=== PATIENT | female | born 1970 | race African-American/Black ===

== ENCOUNTER 2024-12-22 14:27 | Outpatient (REF) | payer OTHER, SELFPAY ==
--- OUTSIDE RECORDS SUMMARY | 2024-12-20 23:59 | XMS_ITS | Continuity of Care Document ---
Author Organization [facility] Address [address] [place] [address]- Care Team Providers Care Lead Carpenter Name Role Phone Panting Adrián Campos MD Primary Care Physic rony [place] [facility] [place] 11/20/24 - 12/20/24 [facility] [address] [place], [place] [address] Encounter Type: Triage Allergies, Adverse Reactions, Alerts Substance Criticality Severity Reaction Reaction Severity Status codeine hives Active penicillin hives Active Percocet hives Active Dilaudid Active Other Food Allergy tomatoes, red onions, pears, walnuts Active traMADol Active morphine hives Active Immunizations Given and Recorded Vaccine Date Status Refusal Reason influenza virus vaccine, inactivated 12/11/23 Pedro Pablo rded influenza virus vaccine, inactivated 02/12/22 Pedro Pablo rded influenza virus vaccine, inactivated 1 12/21/20 Gi freddy influenza virus vaccine, inactivated 2 11/18/19 Re corded influenza virus vaccine, inactivated 3 01/01/19 Gi freddy influenza virus vaccine, inactivated 12/02/17 Pedro Pablo rded influenza virus vaccine, inactivated 12/06/16 Pedro Pablo rded influenza virus vaccine, inactivated 12/07/15 Pedro Pablo rded influenza virus vaccine, inactivated 12/23/14 Pedro Pablo rded SARS-CoV-2 (COVID-19) mRNA BNT-162b2 vac 05/21/20 Recorded SARS-CoV-2 (COVID-19) mRNA BNT-162b2 vac 05/07/20 Recorded SARS-CoV-2 (COVID-19) mRNA BNT-162b2 vac 04/30/20 Recorded tetanus/diphtheria/pertussis, acel(Tdap) 4 12/29/17 Given 1Result Comment: pt. tolerated inj. without complications....CO 2Result Comment: given @ [facility] 3Result Comment: [facility]:[id number] 4Result Comment: [12/29/2017] [facility] [place]# [id number] pt. tolerated inj. without complications...CO Medications amLODIPine 5 mg oral tablet 1 tablet, By Mouth, Daily, # 90 tablet, 1 Refills, Maintenance, 09/09/24 11:49:00 AM EDT, [facility]/pharmacy #[id number], 158, cm, 03/10/24 14:20:00 EST, Height, 78, kg, 03/10/24 13:45:00 EST, Dry Weight Start Date: 09/09/24 Status: Ordered Medication Dispense Status: Completed Quantity: 90.0 Unit: tablet Total Allowed Fills: 2 Fills Dispensed: 0 calcium carbonate 500 mg (200 mg elemental calcium) oral tablet, chewable 500 mg, 1, tablet, Chew, 2 times a day, # 60 tablet, Refills 0, Maintenance, 04/28/20 9:18:00 AM EST, Partial fill upon patient request if the prescription is for a schedule II opioid drug. Start Date: 04/28/20 Status: Ordered Medication Dispense Status: Completed Quantity: 60.0 Unit: tablet Total Allowed Fills: 1 Fills Dispensed: 0 diclofenac 1% topical gel = 2 Gm, Topically, 4 times a day, PRN NEEDED FOR SHOULDER PAIN, # 100 Gm, 1 Refills, Maintenance, 02/27/24 7:12:00 AM EST, [id number], 16, APPLY 2 GM TOPICALLY 4 TIMES A DAY NEEDED FOR SHOULDER PAIN, 158, cm, 12/03/23 13:54:00 EDT, Height, 78.3, kg, 12/03/23 13:41:00 EDT, Dry Weight Start Date: 02/27/24 Status: Ordered Medication Dispense Status: Completed Quantity: 100.0 Unit: g Total Allowed Fills: 1 Fills Dispensed: 0 EPINEPHrine 0.3 mg injectable solution See Instructions, INJECT 0.3MG INTRAMUSCULAR ONCE,INSTR:MAY REPEAT IF NECESSARY, # 2 Unknown, 11 Refills, Maintenance, 09/13/24 9:31:00 AM EDT, [id number], 158, cm, 03/10/24 14:20:00 EST, Height,78, kg, 03/10/24 13:45:00 EST, Dry Weight Start Date: 09/13/24 Status: Ordered Medication Dispense Status: Completed Quantity: 2.0 Unit: Unknown Total Allowed Fills: 1 Fills Dispensed: 0 Floranex oral granule 1 pack/packet, By Mouth, Daily, add to cereal, food or milk, # 30 pack/packet, 1 Refills, Maintenance, 11/15/24 1:21:00 PM EDT, Granule, [facility]/pharmacy #[id number], Partial fill upon patient request if the prescription is for a schedule II opioid drug., 1 pack/packet By Mouth Daily,Instr:add to cereal, foodor milk, 160, cm, 11/15/24 12:57:00 EDT, Height, 80, kg, 11/15/24 12:57:00 EDT, Dry Weight Start Date: 11/15/24 Status: Ordered Medication Dispense Status: Completed Quantity: 30.0 Unit: pack/packet Total Allowed Fills: 2 Fills Dispensed: 0 gabapentin 300 mg oral capsule See Instructions, TAKE 1 CAPSULE BY MOUTH DAILY IN THE MORNING AND 2 CAPS DAILY IN THE EVENING, # 90 capsule, Refills 0, Maintenance, 09/15/24 3:04:00 PM EDT, Instructions Replace Required Details, Route to Pharmacy Electronically, [id number], 158, cm, 03/10/24 14:20:00 EST, Height, 78, kg, 03/10/24 13:45:00 EST, Dry Weight Start Date: 09/15/24 Status: Ordered Medication Dispense Status: Completed Quantity: 90.0 Unit: capsule Total Allowed Fills: 1 Fills Dispensed: 0 omeprazole 40 mg oral enteric coated capsule See Instructions, TAKE 1 CAPSULE BY MOUTH 2 TIMES A DAY BEFORE A MEAL, # 180 capsule, 1 Refills, Maintenance, 08/22/24 6:58:00 PM EDT, [id number], 158, cm, 03/10/24 14:20:00 EST, Height, 78, kg, 03/10/24 13:45:00 EST, Dry Weight Start Date: 08/22/24 Status: Ordered Medication Dispense Status: Completed Quantity: 180.0 Unit: capsule Total Allowed Fills: 1 Fills Dispensed: 0 spironolactone 25 mg oral tablet 1, tablet, By Mouth, Daily, # 90 tablet, Refills 0, Tot. Refills 0, Maintenance, 11/29/24 11:17:00 AM EDT, Route to Pharmacy Electronically, [facility]/pharmacy #[id number], 160, cm, 11/15/24 12:57:00 EDT, Height, 80, kg, 11/15/24 12:57:00 EDT, Dry Weight Start Date: 11/29/24 Stop Date: 02/27/25 Status: Ordered Medication Dispense Status: Completed Quantity: 90.0 Unit: tablet Total Allowed Fills: 1 Fills Dispensed: 0 VITAMIN D3 1,000 UNIT SOFTGEL VITAMIN D3 1,000 UNIT SOFTGEL, 1, capsule, By Mouth, Daily, # 90 capsule, 3 Refills, Maintenance, 03/20/23 12:49:00 PM EST, 158, cm, 02/05/23 14:17:00 EST, Height, 71.5, kg, 03/18/22 8:30:00 EST, Dry Weight Start Date: 03/20/23 Status: Ordered Medication Dispense Status: Completed Quantity: 90.0 Unit: capsule Total Allowed Fills: 1 Fills Dispensed: 0 Vitamin D3 1000 intl units oral capsule 1 capsule = 1,000 International_Units, By Mouth, Daily, # 100 capsule, 1 Refills, Maintenance, 10/09/24 11:20:00 AM EDT, Capsule, [facility]/pharmacy #[id number], Partial fill upon patient request if the prescription is for a schedule II opioid drug., 158, cm, 09/30/24 11:23:00 EDT, Height, 78, kg, 03/10/24 13:45:00 EST, Dry Weight Start Date: 10/09/24 Status: Ordered Medication Dispense Status: Completed Quantity: 100.0 Unit: capsule Total Allowed Fills: 2 Fills Dispensed: 0 Problem List Condition Confirmation Course Effective Dates Status H ealth Status Informant Anemia Confirmed Active Obesity (BMI 30-39.9) Confirmed Active Dysphagia Confirmed Active Erosive gastritis Confirmed Active Gastroenteritis Confirmed Active Goiter Confirmed Active Right hip pain Confirmed Active Hypertension Confirmed Active Hypertension Confirmed Active Multinodular goiter Confirmed Active Obese class I Confirmed Active Routine medical exam Confirmed Active Left shoulder pain Confirmed Active Social History Social History Type Response Smoking Status Never smoker entered on: 11/23/14 Sex Sex Representation Female (finding) Patient Care team information Care Team Personnel Name: Marcus Campos MD, Adrián Sanchez Position: [facility] Physician - Primary Care Member Role: PCP [address]: [address] [place] [address] Telecom: Care Team Related Persons Name: CHRISTI ALVARADO Name: MANA ALVARADO Name: VINNY ALVARADO Name: VINNY ALVARADO Name: CHRISTY RAY Insurance Providers Guarantor name: SIMIN ALVARADO Health Plan Information #: 1 Payer: [facility] POS Payer Identifier: [id number] Member Number: [id number] Group Number: [id number] Subscriber Identifier: NA Relationship to Subscriber: self Coverage Type: Commercial Managed Care - HMO Coverage Verification Date: NA Telecom: NA Address:
[2024-12-22 16:10] LABS: MANUAL DIFF FLAG NO
[2024-12-22 16:33] LABS: Hematocrit 41.8 % (37.0-47.0); Hemoglobin 13.6 g/dl (12.0-16.0); Imm Gran Abs Auto 0.01 X10*3/uL (0.00-0.03); Imm Gran Pct Auto 0.2 % (0.0-0.4); Lymphocytes Absolute Auto 1.5 X10*3/uL (1.2-4.9); Mean Corpuscular HGB Conc 32.5 g/dl (31.0-35.0); Mean Corpuscular Hemoglobin 29.1 pg (27.0-33.0); Mean Corpuscular Volume 89.3 fL (80.0-98.0); NRBC Abs Auto 0.000 X10*3/uL (0.0-0.012); NRBC Pct Auto 0.0 /100WBC (0.0-0.2); Platelet Count 269 X10*3/uL (160-400); Red Blood Count 4.68 X10*6/uL (4.20-5.50); White Blood Count 4.3 X10*3/uL (4.8-10.8)
[2024-12-22 17:07] LABS: Alanine Aminotransferase 20 U/L (0-31); Albumin Level 4.8 g/dL (3.5-5.0); Alkaline Phosphatase 92 U/L (39-117); Anion Gap 10 (12-20); Aspartate Amino Transferase 23 U/L (5-31); Blood Urea Nitrogen 23 mg/dL (9-16); Calcium 9.6 mg/dL (8.4-10.2); Carbon Dioxide 29 mmol/L (22-29); Chloride 104 mmol/L (96-108); Estimated Glomerular Filt Rate 40; Magnesium 2.3 mg/dL (1.6-2.6); Potassium 4.4 mmol/L (3.3-5.1); Sodium 139 mmol/L (135-145); Total Protein 8.1 g/dL (6.5-8.0)
--- OUTSIDE RECORDS SUMMARY | 2024-12-22 18:47 | XMS_ITS | Clinical Summary ---
Author Organization [facility] Address [address] [place] [phone] Phone Care Team Providers Care Maintenance Department Technician Name Role Phone Domenica Espinal MD Primary Care Provider [phone] Allergies Active Allergy Reactions Criticality Noted Date Comments Codeine Hives 10/12/2024 Hydromorphone Hives,Itching,Nausea 10/12/2024 Morphine Hives 10/12/2024 Onion Hives,Itching,Swelli ng High 10/12/2024 Patient allergic to red onion Other 10/28/2024 Other Reaction(s): tomatoes, red onions, pears, walnuts Oxycodone Hives 10/12/2024 Oxycodone-Acetaminophen Hives,Itching Pear Hives,Itching,Swelli ng High 10/12/2024 Penicillins Hives,Itching 10/12/2024 Tomato Hives,Itching,Swelli ng High 10/12/2024 Tramadol Hives,Itching 10/12/2024 [place] Hives,Itching,Swelli ng High 10/12/2024 Medications Tirzepatide-Weig ht Management (Zepbound) 2.5 MG/0.5ML solution Inject 2.5 mg under the skin 5 Active omeprazole (PriLOSEC) [address] capsule Take 40 mg by mouth in the morning. 5 Active gabapentin (NEURONTIN) 300 MG capsule Take 300 mg by mouth in the morning and 300 mg in the evening. 5 Active cholecalciferol (Vitamin D-[address]) 25 MCG (1000 UT) tablet Take 1,000 Units by mouth in the morning. Active amLODIPine (NORVASC) 5 MG tablet Take 5 mg by mouth in the morning. 5 Active spironolactone (ALDACTONE) 25 MG tablet Take 2 tablets (50 mg total) by mouth 1 (one) time each day 180 tablet 3 5 Active spironolactone (ALDACTONE) 25 MG tablet Take 25 mg by mouth in the morning. 5 12/10/19 25 Discontinu ed(Reorder (does not appear on AVS)) ondansetron ODT (ZOFRAN-ODT) 4 MG dispersible tablet TAKE 1 TABLET BY MOUTH EVERY 8 HOURS FOR NAUSEA AND VOMITING FOR 3 DAYS 5 12/10/19 25 Discontinu ed([facility] Active Problems Problem Noted Date Diagnosed Date Obese class I 10/28/2024 Multinodular goiter 10/28/2024 Hypertension 10/28/2024 Erosive gastritis 10/28/2024 Routine medical examination 10/28/2024 Pain in right hip 10/28/2024 Pain in left shoulder 10/28/2024 Acute kidney failure 10/12/2024 Gastroenteritis 09/30/2024 Thyroid nodule 11/13/2022 Goiter 11/13/2022 Gastric erosion 11/13/2022 Dysphagia 11/13/2022 Anemia 11/13/2022 Encounters Date Type Department Care Team Description 12/09/2024 4:30 PM EDT Office Visit [facility] [address] [phone] Trell Palacios MD Other acute kidney failure (HCC) (Primary Dx); Hypertension 10/28/2024 9:00 AM EDT Office Visit [facility] [address] [facility] [address] [place] [address] Trell Palacios MD Other acute kidney failure (HCC) (Primary Dx); Hypertension from Last 3 Months Family History Medical History Relation Comments Hypertension Brother Diabetes Father Kidney disease Father Cancer Mother Hypertension Mother Relation Status Comments Brother Alive Father Alive Mother Alive Social History Tobacco Use Types Packs/Day Years Used Date Smoking Tobacco: Never Smokeless Tobacco: Never Tobacco Cessation:Counseling Given: Not Answered Alcohol Use Standard Drinks/Week Comments Not Currently 0 (1 standard drink = 0.6 oz pure alcohol) Only on occasions maybe a glass of wine Comments Unknown Sex and Gender Information Value Date Recorded Sex Assigned at Not on file Legal Sex Female 8:13 AM EDT Gender Identity Not on file Sexual Orientation Not on file Last Filed Vital Signs Vital Sign Reading Time Taken Comments Blood Pressure 162/100 12/09/2024 4:18 PM EDT Pulse 93 12/09/2024 4:18 PM EDT Temperature - - Respiratory Rate - - Oxygen Saturation - - Inhaled Oxygen Concentration - - Weight 80.7 kg (178 lb) 12/09/2024 4:18 PM EDT Height 160 cm (5' 3 ) 10/28/2024 9:07 AM EDT Body Mass Index 31.53 10/28/2024 9:07 AM EDT Plan of Treatment Upcoming Encounters Date Type Department Care Team (Late st Contact Info) Description 04/18/2025 4:15 PM EST Office Visit [facility] [address] [phone] Trell Palacios MD [address] [phone] Health Maintenance Due Date Last Done Comments Breast Cancer Screening 1970 Hepatitis B Vaccine (1 of 3 - 19+ 3-dose series) 1989 Pneumococcal Vaccine: 50+ Ye ars (1 of 2 - PCV) 1989 Colorectal Cancer Screening: Annual FOBT 08/05/2019 Colorectal Cancer Screening: Colonoscopy 08/05/2019 Colorectal Cancer Screening: Sigmoidoscopy 08/05/2019 Influenza Vaccine (#1) 2024 12/21/2020, 2018 Procedures Procedure Name Priority Date/Time Associated Diagnosis Comments RENIN ACTIVITY Routine 10/29/2024 8:44 AM EDT Hypertension ALDOSTERONE Routine 10/29/2024 8:44 AM EDT Hypertension URINE ALBUMIN / CREATININE RATIO Routine 10/29/2024 8:44 AM EDT Other acute kidney failure (HCC) RENAL FUNCTION PANEL Routine 10/29/2024 8:44 AM EDT Other acute kidney failure (HCC) from Last 3 Months Results * Renin Activity, Plasma (10/29/2024 8:44 AM EDT) Renin Activity 0.665 0.167 - 5.380 ng/mL/hr [facility] Blood Venous blood / Unknown 10/29/2024 8:44 AM EDT 10/29/2024 Narrative [facility] - 11/03/2024 1:05 PM EDT Test(s) 561015-[id number] Activity, Plasma was developed and its performance characteristics determined by [employer]. It has not been cleared or approved by the Food and Drug Administration. Trell Palacios MD LAB BLOOD ORDERABLES Final Resul t [facility] [place] [address] * (ABNORMAL) urine albumin / creatinine ratio (10/29/2024 8:44 AM EDT) Creatinine, Ur 95.8 Not Estab. mg/dL [facility] Albumin, Urine 32.5 Not Estab. ug/mL [facility] Albumin/Creatin ine Ratio 34(H) 0 - 29 mg/g creat [facility] Comment: Normal: 0 - 29 Moderately increased: 30 - 300 Severely increased: >300 Urine Urine specimen obtained by clean catch procedure / Unknown 10/29/2024 8:44 AM EDT 10/29/2024 Trell Palacios MD LAB URINE ORDERABLES Final Resul t [facility] [address] [place] [address] * Aldosterone (10/29/2024 8:44 AM EDT) Pathologist [facility] Aldosterone 20.2 0.0 - 30.0 ng/dL [facility] Blood Venous blood / Unknown 10/29/2024 8:44 AM EDT 10/29/2024 Narrative [facility] - 11/03/2024 1:05 PM EDT Test(s) [id number] was developed and its performance characteristics determined by [employer]. It has not been cleared or approved by the Food and Drug Administration. Trell Palacios MD LAB BLOOD ORDERABLES Final Resul t Performing Organization Address City/[facility]/ZIP Co de Phone Number [facility] [address] [place] [phone] * (ABNORMAL) Renal funtion panel (10/29/2024 8:44 AM EDT) Pathologist [facility] Glucose 96 70 - 99 mg/dL [facility] BUN 14 6 - 24 mg/dL [facility] Creatinine 1.36(H) 0.57 - 1.00 mg/dL [facility] eGFR CKD-EPI CR 2020 46(L) >59 mL/min/1.7 3 [facility] BUN/Creatinine Ratio 10 9 - 23 [facility] Sodium 137 134 - 144 mmol/L [facility] Potassium 3.9 3.5 - 5.2 mmol/L [facility] Chloride 101 96 - 106 mmol/L [facility] Bicarbonate (CO2) 20 20 - 29 mmol/L [facility] Calcium 9.2 8.7 - 10.2 mg/dL [facility] Albumin 4.3 3.8 - 4.9 g/dL [facility] Phosphorus 3.8 3.0 - 4.3 mg/dL [facility] Blood Venous blood / Unknown 10/29/2024 8:44 AM EDT 10/29/2024 us Trell Palacios MD LAB BLOOD ORDERABLES Final Resul t [facility] [address] [place] [address] from Last 3 Months Insurance [facility] Care Teams Maintenance Department Technician Relationship Specialty Start Date End Date Domenica Espinal MD [address] [place], [place] PCP - General Internal Medicine 10/19/24
== END 2024-12-22 14:28 | disposition home or self-care (01) ==
LOC: HO.LAB 14:27
PROVIDERS: PCP Internal Medicine; Visit Provider Internal Medicine
DX: I10 Essential (primary) hypertension (principal); R73.03 Prediabetes; N17.9 Acute kidney failure, unspecified; R06.02 Shortness of breath
CPT/HCPCS: 36415; 80053; 83036; 83735; 84443; 85025

== ENCOUNTER 2024-12-22 14:27 | Outpatient (AMB) | payer OTHER, SELFPAY ==
--- NOTE | 2024-12-22 14:22 | MHC.PC.OV ---
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: No Accompanied by: Self / Same As Patient Allergies acetaminophen (From Percocet) Allergy (Mild, Verified 12/22/24 14:34) Hives codeine Allergy (Mild, Verified 12/22/24 14:34) Hives morphine Allergy (Mild, Verified 12/22/24 14:34) Hives oxycodone (From Percocet) Allergy (Mild, Verified 12/22/24 14:34) Hives Penicillins Allergy (Mild, Verified 12/22/24 14:34) Hives tramadol Allergy (Mild, Verified 12/22/24 14:34) Hives Medication List - Last Reconciled 12/22/24 by Domenica Espinal MD amlodipine 5 mg PO DAILY cholecalciferol (vitamin D3) (Vitamin D3) 25 mcg PO DAILY diclofenac sodium 1% 2 grams topical QID PRN epinephrine IM fluticasone propionate 50 mcg/actuation 2 sprays intranasal DAILY gabapentin mg PO Lactobacillus acidoph-L.bulgar 100 million cell (Floranex) 1 packet PO DAILY omeprazole 40 mg PO BID spironolactone 50 mg PO DAILY Tobacco use date assessed: 12/22/24 Dental Screening Dental Screen Date: 12/22/24 Did you have a dental visit in the last 12 months?: Yes Did you have a dental problem in the last 6 months where you did not have access to dental care?: No Was dental information given to patient?: Patient has dentist HPI HPI Comments History of Present Illness Details The patient is a 54 year old female presenting [facility]. Acute kidney failure: After returning from a trip, she had symptoms of malaise and was found to have a creatinine level of 10. Urgent care and hospital visits led to a diagnosis of acute kidney failure associated with significant electrolyte disturbances, requiring a five-day hospitalization. Has seen behavioral health tech Dr. Palacios. Creatinine has trended down. Patient also notes increased sob with exertion, no chest pain. Hypertension: Persistent hypertension continued despite current treatment with spironolactone and amlodipine, with inadequately controlled levels around 130-140 mmHg systolic. Salmonella: Confirmed salmonella infection linked to undercooked meat ingestion contributed to gastrointestinal and kidney function disturbances that led to dehydration and hospitalization. Electrolyte Imbalances: Low potassium, magnesium, and zinc levels were significant, contributing to muscle twitching and fatigue, linked to both dietary intake and health status. 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 - Nutrition: Eats a low-salt diet, consumes a lot of water and cranberry juice. - Exercise: Experiences fatigue on exertion, particularly on stairs, potentially limiting physical activity. Review of Systems - Cardiovascular: Denies chest pain; per hpi - Pulm: per hpi - Gastrointestinal: per hpi - Genitourinary: Denies current issues, urine is clear. - Neurologic: Reports fatigue, states previous left eye twitching. - Musculoskeletal: Denies leg swelling. - General: Reports feeling tired frequently, particularly post-recovery. Physical Exam - Pulmonary- Lungs clear to auscultation. -Cardiovascular- Normal heart sounds, soft murmur across precordium - Abdominal- SNTND, normoactive bowel sounds. - Extremities- No edema noted. Assessment and Plan 1. Acute kidney failure - Monitor kidney function due to recent failure. 2. Hypertension - continue spironolactone, amlodipine, and add carvedilol. Monitor blood pressure. 3. SOB with exertion- obtain echocardiogram, also has murmur Follow up in 2 weeks to assess blood pressure. Plan - Adjust hypertensive medications and monitor levels. - Evaluate renal and electrolyte status closely. - Encourage dietary modifications and hydration strategy. - Follow up with nephrology - obtain echocardiogram Discussion Notes During the visit, we thoroughly reviewed the patient's recent acute kidney failure incident, its background, and its associated complications like electrolyte disturbances and hypertension. We discussed adjusting her hypertensive regimen. Additionally, we talked about her recent physical symptoms, particularly fatigue on exertion, which warrants a cardiology evaluation. Patient Instructions - Continue taking medications as directed for hypertension. - Monitor blood pressure twice daily, record readings. - Maintain a low-salt diet and drink plenty of water. - Follow up with nephrology - Call the office if you experience new symptoms or significant changes in health. - Rest and pace physical activity to manage fatigue. 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 How often do you have a drink containing alcohol?: Monthly or less 2. How many drinks containing alcohol do you have on a typical day when you are drinking?: 1 or 2 3. How often do you have six or more drinks on one occasion?: Never Total Score: 1 Physical exam (Primary Care) Vital Signs: Last Vital Signs Temp 97.7 F 12/22/24 14:32 Pulse 86 12/22/24 14:32 Resp 16 12/22/24 14:32 BP 158/98 H 12/22/24 15:39 Pulse Ox 98 12/22/24 14:32 Oxygen Delivery Method Room Air 12/22/24 14:32 BMI result Body Mass Index 31.5 Tobacco/Smoking Status: Tobacco use Status Tobacco use date assessed 12/22/24 12/22/24 14:24 Patient Tobacco Use Status Never used Tobacco 12/22/24 14:39 e-Cigarette/Vaping Use Never Used 12/22/24 14:39 Coding Level of Care Code Est Pt Level 4 (82818) Complex EM visit Add On G2211 Diagnoses Acute kidney injury N17.9 Shortness of breath on exertion R06.02 Primary hypertension I10 Prediabetes R73.03 Assessment & Plan Assessment & Plan (1) Acute kidney injury: Code(s): N17.9 - Acute kidney failure, unspecified Category: Medical (2) Shortness of breath on exertion: Code(s): R06.02 - Shortness of breath Category: Medical (3) Primary hypertension: Code(s): I10 - Essential (primary) hypertension Category: Medical (4) Prediabetes: Code(s): R73.03 - Prediabetes Category: Medical Plan: repeat a1c Plan - Adjust hypertensive medications and monitor levels. - Evaluate renal and electrolyte status closely. - Encourage dietary modifications and hydration strategy. - Follow up with nephrology Orders: Orders Complete Blood Count Auto Diff Today I10 - Essential (primary) hypertension, N17.9 - Acute kidney failure, unspecified, R73.03 - Prediabetes Comprehensive Met. Panel Today I10 - Essential (primary) hypertension, N17.9 - Acute kidney failure, unspecified, R73.03 - Prediabetes CA echo transthoracic complete Today R06.02 - Shortness of breath Magnesium Today I10 - Essential (primary) hypertension TSH reflex Free T4 Today I10 - Essential (primary) hypertension, N17.9 - Acute kidney failure, unspecified, R73.03 - Prediabetes Hemoglobin A1c Today I10 - Essential (primary) hypertension, R73.03 - Prediabetes Referrals MANAGER OF PMO Referral Z01.419 - Encounter for gynecological examination (general) (routine) without abnormal findings Medications: New diclofenac sodium 1% 2 grams topical QID PRN 100 grams 3RF pain carvedilol must administer with a meal/food 6.25 mg PO BID 60 tabs 0RF 30 days
[2024-12-22 14:32] VITALS: BP 160/94; PULSE 86; RESP 16; TEMP 36.5; O2SAT 98; BMI 31.5
[2024-12-22 15:39] VITALS: BP 158/98
--- OUTSIDE RECORDS SUMMARY | 2024-12-22 17:37 | XMS_ITS | Clinical Summary ---
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 Name Role Phone Physician, Pcp Unknown Primary Care Provider Vikki vailable Allergies Active Allergy Reactions Criticality Noted Date Comments Codeine Hives 10/12/2024 Hydromorphone Hives 10/12/2024 Morphine Hives 10/12/2024 Onion Hives,Itching,Angioedema High 10/12/2024 Patient allergic to red onion Oxycodone Hives 10/12/2024 Pear Hives,Itching,Angioedema High 10/12/2024 Penicillins Hives 10/12/2024 Tomato Hives,Itching,Angioedema High 10/12/2024 Tramadol Hives 10/12/2024 [place] Hives,Itching,Angioedema High 10/12/2024 Medications amLODIPine (NORVASC) 5 mg tablet Take 1 tablet (5 mg total) by mouth 1 (one) time each day. 09/09/2024 Active gabapentin (NEURONTIN) 300 mg capsule Take 1 capsule (300 mg total) by mouth 2 (two) times a day. 09/15/2024 Active omeprazole (PriLOSEC) [address] capsule Take 1 capsule (40 mg total) by mouth 1 (one) time each day. 08/22/2024 Active spironolactone (ALDACTONE) 25 mg tablet Take 1 tablet (25 mg total) by mouth 1 (one) time each day. 09/14/2024 Active cholecalciferol (VITAMIN D-3) 25 mcg (1,000 unit) tablet Take 1 tablet (1,000 Units total) by mouth 1 (one) time each day. Active Active Problems Problem Noted Date Diagnosed Date Acute renal failure, unspeci fied acute renal failure type ([facility]) 10/12/2024 Encounters Date Type Department Care Team Description 10/12/2024 4:53 AM EDT - 10/16/2024 11:18 AM EDT Hospital Encounter [facility] [address] [place] [address] Lory Lopez MD Bukalo, Nermina, MD Mohani, Priya, MD Acute renal failure, unspecified acute renal failure type ([facility]) (Primary Dx); Hypokalemia due to excessive gastrointestinal loss of potassium; Oliguria; E. coli gastroenteritis; Enteritis, enterotoxigenic E. coli; Enteritis, enteropathogenic E. coli Discharge Disposition: Home or Self Care from Last 3 Months Social History Tobacco Use Types Packs/Day Years Used Date Smoking Tobacco: Never Smokeless Tobacco: Never Tobacco Cessation:Counseling Given: Not Answered Alcohol Use Standard Drinks/Week Comments Yes 0 (1 standard drink = 0.6 oz pur e alcohol) occasionally Housing Instability Answer Date Recorde d Are you worried that in the next 2 months you may not have stable housing? No 10/12/2024 Food Access & Nutrition Answer Date Rec orded Do you have access to a vari ety of food including fruits and vegetables? Yes 10/12/2024 Access to Healthcare Answer Date Record ed Within the last 3 months, ho w many times did you visit the emergency department for your medical care? 0 10/12/2024 Health Literacy Answer Date Recorded How often do you need to hav e someone help you when you read instructions, pamphlets, or other written material from your doctor or pharmacy? Never 10/12/2024 Caregiver: How often do you need to have someone help you when you read instructions, pamphlets, or other written material from your doctor or pharmacy? Not on file 10/12/2024 Financial Risk Answer Date Recorded How hard is it for you to pa y for the very basics like food, housing, medical care, and air conditioning / heating? Not very hard 10/12/2024 Transportation Answer Date Recorded Has the lack of transportati on kept you from meetings, work, or from getting things needed for daily living? No Has the lack of transportati on kept you from medical appointments or from getting medications? No 10/12/2024 Social Isolation Answer Date Recorded How often do you feel lonely or isolated from th ose around you? Never 10/12/2024 Food Risk Answer Date Recorded Within the past 12 months we worried whether our food would run out before we got money to buy more. Never true 10/12/2024 Within the past 12 months th e food we bought just didn't last and we didn't have money to get more. Never true 10/12/2024 Dependent Care Answer Date Recorded Do you need help finding or paying for care for your loved ones. For example, child protection specialist or elderly care for an older adult? No 10/12/2024 Education Answer Date Recorded Do you think completing more education or training, like finishing a GED, going to college, or learning a trade, would be helpful for you? No 10/12/2024 Employment and Income Answer Date Recor ded During the last four weeks, have you been actively looking for work? No 10/12/2024 Living Situation Answer Date Recorded What is your living situation? Unrecognized valu e 10/12/2024 Interpersonal Safety Answer Date Record ed Physical Abuse Unrecognized value 10/12/2024 Verbal Abuse Unrecognized value 10/12/2024 Comments No Sex and Gender Information Value Date Recorded Sex Assigned at Not on file Legal Sex Female 3:27 AM EDT Gender Identity Not on file Sexual Orientation Choose not to disclose 2024 2:32 PM EDT Obstetrics History Last Filed Vital Signs Vital Sign Reading Time Taken Comments Blood Pressure 144/91 10/16/2024 7:53 AM EDT Pulse 82 10/16/2024 7:53 AM EDT Temperature 36.8 C (98.2 F) 10/16/2024 7:53 AM EDT Respiratory Rate 17 10/16/2024 7:53 AM EDT Oxygen Saturation 99% 10/16/2024 7:53 AM EDT Inhaled Oxygen Concentration - - Weight 75.3 kg (166 lb) 10/12/2024 5:20 AM EDT Height 160 cm (5' 3 ) 10/12/2024 5:20 AM EDT Body Mass Index 29.41 10/12/2024 5:20 AM EDT Plan of Treatment Health Maintenance Due Date Last Done Comments Breast Cancer Screening 1970 Colorectal Cancer Screening: Colonoscopy 1970 Hepatitis B Vaccines (1 of 3 - 19+ 3-dose series) 1989 Cervical Cancer Screening: Pap Smear 08/05/1991 Pneumococcal Vaccine: 50+ Years (1 of 1 - PCV) 2020 Zoster Vaccines (1 of 2) 2020 Depression Screening 02/18/2024 Cholesterol Screening (Lipid Panel) 10/12/2024 HIV Screening 10/12/2024 Hepatitis C Screening 10/12/2024 COVID-19 Vaccine ( - 2024- season) 2024 05/21/2020, 04/30/2020 Influenza Vaccine (#1) 2024 , 02/12/2022, 12/21/2020, Additional history exists Social Influencers of Health Screening 10/12/2025 10/12/2024 Hypertension/CHF/CAD Annual BMP Blood Test 10/16/2025 10/16/2024, 10/15/2024, 10/14/2024, Additional history exists DTaP,Tdap,and Td Vaccines (2 - Td or Tdap) 12/30/2027 12/29/2017 RSV Immunization Adult Patients (1 - 1-dose 75+ series) 2045 HIB Vaccines Aged Out No longer eligi ble based on patient's age to complete this topic HPV Vaccines Aged Out No longer eligi ble based on patient's age to complete this topic Hepatitis A Vaccines Aged Out No long er eligible based on patient's age to complete this topic IPV Vaccines Aged Out No longer eligi ble based on patient's age to complete this topic MMR Vaccines Aged Out No longer eligi ble based on patient's age to complete this topic Meningococcal ACWY Vaccine Aged Out N o longer eligible based on patient's age to complete this topic Meningococcal B Vaccine Aged Out No l onger eligible based on patient's age to complete this topic RSV Immunization Patients Under 20 months Aged Out No longer eligible based on patient's age to complete this topic Varicella Vaccines Aged Out No longer eligible based on patient's age to complete this topic Procedures Procedure Name Priority Date/Time Associated Diagnosis Comments MAGNESIUM Routine 10/16/2024 6:00 AM EDT BASIC METABOLIC PANEL Routine 10/16/2024 6:00 AM EDT LAVENDER - EDTA Routine 10/16/2024 5:56 AM EDT EXTRA TUBES Routine 10/16/2024 5:56 AM EDT LAVENDER - EDTA Routine 10/15/2024 5:54 AM EDT EXTRA TUBES Routine 10/15/2024 5:54 AM EDT MAGNESIUM Routine 10/15/2024 5:54 AM EDT BASIC METABOLIC PANEL Routine 10/15/2024 5:54 AM EDT RBC MORPHOLOGY REVIEW Routine 10/14/2024 5:44 AM EDT CBC WITH AUTO DIFFERENTIAL Routine 10/14/2024 5:44 AM EDT MAGNESIUM Routine 10/14/2024 5:44 AM EDT CBC AND DIFFERENTIAL Routine 10/14/2024 5:44 AM EDT BASIC METABOLIC PANEL Routine 10/14/2024 5:44 AM EDT BASIC METABOLIC PANEL Routine 10/13/2024 3:16 PM EDT ANTI-JENNIFER 1 ANTIBODY, IGG Routine 10/14/19 8:53 AM EDT LAVENDER - EDTA Routine 10/13/2024 8:49 AM EDT EXTRA TUBES Routine 10/13/2024 8:49 AM EDT TISSUE TRANSGLUTAMINASE, IGA Add-On 10/13/2024 5:45 AM EDT IMMUNOGLOBULIN IGM Add-On 10/13/2024 5: 45 AM EDT COMPLETE BLOOD COUNT Routine 10/13/2024 5:45 AM EDT BASIC METABOLIC PANEL Routine 10/13/2024 5:45 AM EDT US RETROPERITONEAL COMPLETE Routine 10/12/2024 11:43 PM EDT C4 COMPLEMENT Add-On 10/12/2024 12:33 PM EDT C3 COMPLEMENT Add-On 10/12/2024 12:33 PM EDT ANTI-NEUTROPHILIC CYTOPLASMIC ANTIBODY Add-On 10/12/2024 12:33 PM EDT ZANE IFA WITH TITER AND PATTERN Add-On 10/12/2024 12:33 PM EDT HAPTOGLOBIN Add-On 10/12/2024 12:33 PM EDT BASIC METABOLIC PANEL Routine 10/12/2024 12:33 PM EDT CULTURE STOOL Routine 10/12/2024 10:34 AM EDT GASTROINTESTINAL PATHOGENS BY PCR Routine 10/12/2024 10:34 AM EDT XR CHEST 1 VIEW STAT 10/12/2024 9:06 AM EDT EAST URINE CULTURE TUBE STAT 10/13/19 8:14 AM EDT URINALYSIS WITH REFLEX MICROSCOPIC AND CULTURE STAT 10/12/2024 8:14 AM EDT URINALYSIS WITH REFLEX MICROSCOPIC AND CULTURE STAT 10/12/2024 8:14 AM EDT CULTURE URINE STAT 10/12/2024 8:14 AM EDT CBC WITH AUTO DIFFERENTIAL STAT 10/12/2024 6:20 AM EDT MAGNESIUM STAT 10/12/2024 6:20 AM EDT COMPREHENSIVE METABOLIC PANEL STAT 10/12/2024 6:20 AM EDT CBC AND DIFFERENTIAL STAT 10/12/2024 6:20 AM EDT ND CRITICAL CARE 30-74 MINUTES Routine 10/12/2024 4:46 AM EDT from Last 3 Months Results * (ABNORMAL) Magnesium (10/16/2024 6:00 AM EDT) Only the most recent of4 resultswithin the time period is included. Pathologist [facility] Magnesium 1.7(L) 1.9 - 2.6 mg/dL LAB CHEMISTRY METHOD 10/16/2024 7:07 AM EDT [facility] Blood Venous blood specimen / Unknown Venipuncture / Unknown 10/16/2024 6:00 AM EDT 10/16/2024 6:19 AM EDT us Meaghan Chi MD LAB BLOOD ORDERABLES Final Resul t [facility] [address] [place] [address], [place] [phone] * (ABNORMAL) Basic metabolic panel (10/16/2024 6:00 AM EDT) Only the most recent of6 resultswithin the time period is included. Sodium 139 133 - 145 mmol/L LAB CHEMISTRY METHOD 10/16/2024 7:07 AM EDT [facility] Potassium 3.7 3.5 - 5.5 mmol/L LAB CHEMISTRY METHOD 10/16/2024 7:07 AM EDT [facility] Chloride 109 96 - 110 mmol/L LAB CHEMISTRY METHOD 10/16/2024 7:07 AM [facility] CO2 27 21 - 32 mmol/L LAB CHEMISTRY METHOD 10/16/2024 7:07 AM [facility] Anion Gap 3 3 - 11 LAB CHEMISTRY METHOD 10/16/2024 7:07 AM [facility] Glucose 93 70 - 100 mg/dL LAB CHEMISTRY METHOD 10/16/2024 7:07 AM [facility] BUN 11 5 - 25 mg/dL LAB CHEMISTRY METHOD 10/16/2024 7:07 AM [facility] Creatinine 1.93(H) 0.50 - 1.10 mg/dL LAB CHEMISTRY METHOD 10/16/2024 7:07 AM [facility] eGFR 30(L) >=60 mL/min/1. 73m2 LAB CHEMISTRY METHOD 10/16/2024 7:07 AM [facility] Comment:Calculation based on the Chronic Kidney Disease Epidemiology Collaboration (CKD-EPI) equation refit without adjustment for race. BUN/Creatinine Ratio 5.7 LAB CHEMISTRY METHOD 10/16/2024 7:07 AM [facility] Calcium 8.1(L) 8.5 - 10.5 mg/dL LAB CHEMISTRY METHOD 10/16/2024 7:07 AM [facility] Blood Venous blood specimen / Unknown Venipuncture / Unknown 10/16/2024 6:00 AM EDT 10/16/2024 6:19 AM EDT us Meaghan Chi MD LAB BLOOD ORDERABLES Final Resul t [facility] [address] [place] [address], * Lavender tube (10/16/2024 5:56 AM EDT) Only the most recent of3 resultswithin the time period is included. Extra Tube Hold for add-ons. 10/16/2024 8:01 AM EDT [facility] Comment:Auto resulted. Blood Venous blood specimen / Unknown Venipuncture / Unknown 10/16/2024 5:56 AM EDT 10/16/2024 6:19 AM EDT us Meaghan Chi MD LAB BLOOD ORDERABLES Final Resul t Performing Organization Address City/[facility] Co de Phone Number [facility] [address] [place] [address], [place] [phone] * (ABNORMAL) RBC morphology review (10/14/2024 5:44 AM EDT) [facility] Rbc Morphology Consistent with indices Consistent with indices, Normal for LAB HEMETOLOGY METHOD 10/14/2024 7:15 AM EDT [facility] Platelet Morphology - WAM See Note(A) Normal LAB HEMETOLOGY METHOD 10/14/2024 7:15 AM EDT [facility] Comment:PLT: Normal Blood Venous blood specimen / Unknown Venipuncture / Unknown 10/14/2024 5:44 AM EDT 10/14/2024 6:10 AM EDT us Meaghan Chi MD LAB BLOOD ORDERABLES Final Resul t Performing Organization Address [facility] Co de Phone Number [facility] [address] [place] [address], [place] [phone] * (ABNORMAL) CBC auto differential (10/14/2024 5:44 AM EDT) Only the most recent of2 resultswithin the time period is included. [facility] WBC 2.7(L) 4.8 - 10.8 K/mcL LAB HEMETOLOGY METHOD 10/14/2024 7:15 AM EDT [facility] RBC 4.00 3.80 - 4.80 M/mcL LAB HEMETOLOGY METHOD 10/14/2024 7:15 AM EDT [facility] Hemoglobin 11.6 11.5 - 16.0 g/dL LAB HEMETOLOGY METHOD 10/14/2024 7:15 AM [facility] Hematocrit 34.7(L) 35.0 - 47.0 % LAB HEMETOLOGY METHOD 10/14/2024 7:15 AM [facility] MCV 87.0 79.0 - 98.0 FL LAB HEMETOLOGY METHOD 10/14/2024 7:15 AM [facility] MCH 29.1 27.0 - 32.0 pcg LAB HEMETOLOGY METHOD 10/14/2024 7:15 AM [facility] MCHC 33.4 32.0 - 37.0 g/dL LAB HEMETOLOGY METHOD 10/14/2024 7:15 AM [facility] RDW 13.7 11.0 - 15.0 % LAB HEMETOLOGY METHOD 10/14/2024 7:15 AM [facility] Platelets 223 130 - 400 K/mcL LAB HEMETOLOGY METHOD 10/14/2024 7:15 AM [facility] MPV 10.2 7.0 - 11.0 FL LAB HEMETOLOGY METHOD 10/14/2024 7:15 AM [facility] NRBC 0.0 <1.0 % LAB HEMETOLOGY METHOD 10/14/2024 7:15 AM [facility] NRBC Absolute 0.00 <0.10 K/mcL LAB HEMETOLOGY METHOD 10/14/2024 7:15 AM [facility] Neutrophils Relative 40.0 % LAB HEMETOLOGY METHOD 10/14/2024 7:15 AM [facility] Comment:This is an appended report. These results have been appended to a previously preliminary verified report. Lymphocytes Relative 36.0 % LAB HEMETOLOGY METHOD 10/14/2024 7:15 AM [facility] Comment:This is an appended report. These results have been appended to a previously preliminary verified report. Monocytes Relative 19.5 % LAB HEMETOLOGY METHOD 10/14/2024 7:15 AM [facility] Comment:This is an appended report. These results have been appended to a previously preliminary verified report. Eosinophils Relative 3.0 % LAB HEMETOLOGY METHOD 10/14/2024 7:15 AM [facility] Comment:This is an appended report. These results have been appended to a previously preliminary verified report. Basophils Relative 0.4 % LAB HEMETOLOGY METHOD 10/14/2024 7:15 AM [facility] Comment:This is an appended report. These results have been appended to a previously preliminary verified report. Immature Granulocytes Relative 1.1 % LAB HEMETOLOGY METHOD 10/14/2024 7:15 AM [facility] Comment:This is an appended report. These results have been appended to a previously preliminary verified report. Neutrophils Absolute 1.07(L) 1.50 - 7.00 K/mcL LAB HEMETOLOGY METHOD 10/14/2024 7:15 AM [facility] Comment:This is an appended report. These results have been appended to a previously preliminary verified report. Lymphocytes Absolute 0.96(L) 1.00 - 5.00 K/mcL LAB HEMETOLOGY METHOD 10/14/2024 7:15 AM [facility] Comment:This is an appended report. These results have been appended to a previously preliminary verified report. Monocytes Absolute 0.52 0.20 - 1.00 K/mcL LAB HEMETOLOGY METHOD 10/14/2024 7:15 AM [facility] Comment:This is an appended report. These results have been appended to a previously preliminary verified report. Eosinophils Absolute 0.08 0.00 - 0.50 K/mcL LAB HEMETOLOGY METHOD 10/14/2024 7:15 AM EDT [facility] Comment:This is an appended report. These results have been appended to a previously preliminary verified report. Basophils Absolute 0.01 0.00 - 0.20 K/mcL LAB HEMETOLOGY METHOD 10/14/2024 7:15 AM EDT [facility] Comment:This is an appended report. These results have been appended to a previously preliminary verified report. Immature Granulocytes Absolute 0.03 0.00 - 0.03 K/[facility] LAB HEMETOLOGY METHOD 10/14/2024 7:15 AM EDT [facility] Comment:This is an appended report. These results have been appended to a previously preliminary verified report. Blood Venous blood specimen / Unknown Venipuncture / Unknown 10/14/2024 5:44 AM EDT 10/14/2024 6:10 AM EDT Meaghan Chi MD LAB BLOOD ORDERABLES Final Resul t [facility] [address] [place] [address], [place] [phone] * Anti-Jennifer 1 antibody, IgG (10/13/2024 8:53 AM EDT) JENNIFRE-1 IgG Antibody <0.3 <7.0 U/mL 10/15/2024 11:29 AM EDT [facility] Comment: INTERPRETATION: Negative Test performed at [facility], [address], [place] [address] Karla Crump MD, PhD - Waxing Machine Operator Helper Blood Venous blood specimen / Unknown Venipuncture / Unknown 10/13/2024 8:53 AM EDT 10/13/2024 9:06 AM EDT us Meaghan Chi MD LAB BLOOD ORDERABLES Final Resul t [facility] [address] [place] [address] * Tissue transglutaminase, IgA (10/13/2024 5:45 AM EDT) Pathologist [facility] Tissue Transglutaminase Ab, IgA Quant 1 <4 unit/mL LAB CHEMISTRY METHOD 10/20/2024 11:51 AM EDT [facility] Tissue Transglutaminase Ab, IgA Negative Negative LAB CHEMISTRY METHOD 10/20/2024 11:51 AM EDT [facility] Blood Venous blood specimen / Unknown Venipuncture / Unknown 10/13/2024 5:45 AM EDT 10/13/2024 6:12 AM EDT us Meaghan Chi MD LAB BLOOD ORDERABLES Final Resul t [facility] [address] [place] [address], * (ABNORMAL) Complete blood count (10/13/2024 5:45 AM EDT) [facility] WBC 2.5(L) 4.8 - 10.8 K/mcL LAB HEMETOLOGY METHOD 10/13/2024 6:58 AM EDT [facility] RBC 4.20 3.80 - 4.80 M/mcL LAB HEMETOLOGY METHOD 10/13/2024 6:58 AM EDT [facility] Hemoglobin 12.1 11.5 - 16.0 g/dL LAB HEMETOLOGY METHOD 10/13/2024 6:58 AM EDT [facility] Hematocrit 35.4 35.0 - 47.0 % LAB HEMETOLOGY METHOD 10/13/2024 6:58 AM EDT [facility] MCV 85.1 79.0 - 98.0 FL LAB HEMETOLOGY METHOD 10/13/2024 6:58 AM EDT [facility] MCH 29.1 27.0 - 32.0 pcg LAB HEMETOLOGY METHOD 10/13/2024 6:58 AM EDT [facility] MCHC 34.2 32.0 - 37.0 g/dL LAB HEMETOLOGY METHOD 10/13/2024 6:58 AM EDT [facility] RDW 13.3 11.0 - 15.0 % LAB HEMETOLOGY METHOD 10/13/2024 6:58 AM EDT [facility] Platelets 195 130 - 400 K/mcL LAB HEMETOLOGY METHOD 10/13/2024 6:58 AM EDT [facility] MPV 10.1 7.0 - 11.0 FL LAB HEMETOLOGY METHOD 10/13/2024 6:58 AM EDT [facility] NRBC 0.0 <1.0 % LAB HEMETOLOGY METHOD 10/13/2024 6:58 AM EDT [facility] NRBC Absolute 0.00 <0.10 K/mcL LAB HEMETOLOGY METHOD 10/13/2024 6:58 AM EDT [facility] Blood Venous blood specimen / Unknown Venipuncture / Unknown 10/13/2024 5:45 AM EDT 10/13/2024 6:12 AM EDT us Rosalind Dow MD LAB BLOOD ORDERABLES Final Res ult [facility] [address] [place] [address], * Immunoglobulin IgM (10/13/2024 5:45 AM EDT) IgM 44 23 - 259 mg/dL LAB CHEMISTRY METHOD 10/13/2024 8:54 AM EDT [facility] Blood Venous blood specimen / Unknown Venipuncture / Unknown 10/13/2024 5:45 AM EDT 10/13/2024 6:12 AM EDT us Meaghan Chi MD LAB BLOOD ORDERABLES Final Resul t [facility] [place] ([facility]) [facility] [address] [place] [address], [place] [phone] * US Retroperitoneal Complete (10/12/2024 11:43 PM EDT) Anatomical Region Laterality Modality Body Ultrasound 10/16/2024 1:55 PM EDT Impressions 10/16/2024 1:58 PM EDT No evidence of obstruction. No suspicious mass. Subjectively the cortical echogenicity is increased which is nonspecific but can be seen with underlying medical renal disease. There is color signal normally distributed within each kidney. -------- FINAL REPORT -------- Dictated By: Tyler Conley Dictated Date: 10/16/2024 13:55 ET Assigned Physician: Tyler Conley Reviewed and Electronically Signed By: Tyler Conley Signed Date: 10/16/2024 13:58 ET Workstation ID: [id number] Transcribed By: Self Edit Transcribed Date: 10/16/2024 13:55 ET Narrative 10/16/2024 1:58 PM EDT EXAM: RENAL and BLADDER ULTRASOUND INDICATION: Acute renal failure. COMPARISON: None available. FINDINGS: ULTRASOUND OF THE KIDNEYS AND BLADDER. KIDNEYS: RIGHT: Size: Other than 0.9 cm in greatest length Collecting system: There is no dilation of the intrarenal collecting system Contour: The renal contour is smooth Cortical thickness: Normal uniform cortical thickness Cortical echogenicity: The cortex appears somewhat echogenic. Masses: There are no suspicious renal masses. Shadowing calculi: There are no shadowing calculi demonstrated Other: No other significant findings LEFT: Size: 11.9 cm in greatest length Collecting system: There is no dilation of the intrarenal collecting system Contour: The renal contour is smooth Cortical thickness: Normal uniform cortical thickness Cortical echogenicity: The cortex echogenicity appears subjectively increased. Masses: There are no suspicious renal masses. There is an approximately 1.8 cm upper pole cyst with a mural calcification. No suspicious features. Shadowing calculi: There are no other shadowing calculi demonstrated Other: No other significant findings BLADDER: There is a balloon catheter present. The bladder is not distended. Color mapping was performed. No ureteral jet was demonstrated on either side Pre-void volume: Not performed Post void volume: Not performed Procedure Note Tyler Conley MD - 10/16/2024 EXAM: RENAL and BLADDER ULTRASOUND INDICATION: Acute renal failure. COMPARISON: None available. FINDINGS: ULTRASOUND OF THE KIDNEYS AND BLADDER. KIDNEYS: RIGHT: Size: Other than 0.9 cm in greatest length Collecting system: There is no dilation of the intrarenal collectingsystem Contour: The renal contour is smooth Cortical thickness: Normal uniform cortical thickness Cortical echogenicity: The cortex appears somewhat echogenic. Masses: There are no suspicious renal masses. Shadowing calculi: There are no shadowing calculi demonstrated Other: No other significant findings LEFT: Size: 11.9 cm in greatest length Collecting system: There is no dilation of the intrarenal collectingsystem Contour: The renal contour is smooth Cortical thickness: Normal uniform cortical thickness Cortical echogenicity: The cortex echogenicity appears subjectivelyincreased. Masses: There are no suspicious renal masses. There is an approximately1.8 cm upper pole cyst with a mural calcification. No suspiciousfeatures. Shadowing calculi: There are no other shadowing calculi demonstrated Other: No other significant findings BLADDER: There is a balloon catheter present. The bladder is notdistended. Color mapping was performed. No ureteral jet was demonstrated on eitherside Pre-void volume: Not performed Post void volume: Not performed IMPRESSION: No evidence of obstruction. No suspicious mass. Subjectively the cortical echogenicity is increased which is nonspecificbut can be seen with underlying medical renal disease. There is color signal normally distributed within each kidney. -------- FINAL REPORT -------- Dictated By: Tyler Conley Dictated Date: 10/16/2024 13:55 ET Assigned Physician: Tyler Conley Reviewed and Electronically Signed By: Tyler Conley Signed Date: 10/16/2024 13:58 ET Workstation ID: [id number] Transcribed By: Self Edit Transcribed Date: 10/16/2024 13:55 ET us Elvin Mckeon MD IMG US PROCEDURES Fin al Result * ZANE IFA with titer and pattern (10/12/2024 12:33 PM EDT) [facility] ZANE Negative Negative 10/13/2024 2:03 PM EDT [facility] Comment:ZANE performed by ind irect immunofluorescence (IFA) using HEp-2 substrate. Blood Venous blood specimen / Unknown Venipuncture / Unknown 10/12/2024 12:33 PM EDT 10/12/2024 12:37 PM EDT Elvin Mckeon MD LAB BLOOD ORDERABLES Final Result Performing Organization Address City/[facility]/ZIP Co de Phone Number [facility] [address] [place] [address], [place] [phone] * Anti-neutrophilic cytoplasmic antibody (10/12/2024 12:33 PM EDT) [facility] Myeloperoxidase Ab Negative Negative LAB CHEMISTRY METHOD 10/13/2024 12:22 PM EDT [facility] Myeloperoxidase Ab, Quant 1 <=20 units LAB CHEMISTRY METHOD 10/13/2024 12:22 PM EDT [facility] Proteinase-3 Ab Negative Negative LAB CHEMISTRY METHOD 10/13/2024 12:22 PM EDT [facility] Proteinase-3 Ab Quant 7 <=20 units LAB CHEMISTRY METHOD 10/13/2024 12:22 PM EDT [facility] Blood Venous blood specimen / Unknown Venipuncture / Unknown 10/12/2024 12:33 PM EDT 10/12/2024 12:37 PM EDT Elvin Mckeon MD LAB BLOOD ORDERABLES Final Result Performing Organization Address City/[facility]/ZIP Co de Phone Number [facility] [address] [place] [address], [place] [phone] * C3 complement (10/12/2024 12:33 PM EDT) C3 Complement 164 88 - 201 mg/dL LAB CHEMISTRY METHOD 10/12/2024 10:58 PM EDT [facility] Blood Venous blood specimen / Unknown Venipuncture / Unknown 10/12/2024 12:33 PM EDT 10/12/2024 12:37 PM EDT us Elvin Mckeon MD LAB BLOOD ORDERABLES Final Result Performing Organization Address City/[facility]/ZIP Co de Phone Number [facility] [address] [place] [address], [place] [phone] * (ABNORMAL) C4 complement (10/12/2024 12:33 PM EDT) C4 Complement 50(H) 16 - 47 mg/dL LAB CHEMISTRY METHOD 10/12/2024 10:58 PM EDT [facility] Blood Venous blood specimen / Unknown Venipuncture / Unknown 10/12/2024 12:33 PM EDT 10/12/2024 12:37 PM EDT us Elvin Mckeon MD LAB BLOOD ORDERABLES Final Result Performing Organization Address City/[facility]/ZIP Co de Phone Number [facility] [address] [place] [address], [place] [phone] * (ABNORMAL) Haptoglobin (10/12/2024 12:33 PM EDT) Haptoglobin 304(H) 16 - 200 mg/dL LAB CHEMISTRY METHOD 10/12/2024 10:58 PM EDT [facility] Blood Venous blood specimen / Unknown Venipuncture / Unknown 10/12/2024 12:33 PM EDT 10/12/2024 12:37 PM EDT us Elvin Mckeon MD LAB BLOOD ORDERABLES Final Result [facility] [address] [place] [address], * (ABNORMAL) Gastrointestinal pathogens molecular study (10/12/2024 10:34 AM EDT) Campylobacter Detection by PCR Not Detected Not Detected LAB MICROBIOLOGY METHOD 5 5:27 PM EDT [facility] Plesiomonas shigelloides Detection by PCR Not Detected Not Detected LAB MICROBIOLOGY METHOD 5 5:27 PM EDT [facility] Salmonella Detection by PCR Detected(A A) Not Detected LAB MICROBIOLOGY METHOD 5 5:27 PM EDT [facility] Vibrio Detection by PCR Not Detected Not Detected LAB MICROBIOLOGY METHOD 5 5:27 PM EDT [facility] Vibrio cholerae Detection by PCR Not Detected Not Detected LAB MICROBIOLOGY METHOD 5 5:27 PM EDT [facility] Yersinia enterocolitica Detection by PCR Not Detected Not Detected LAB MICROBIOLOGY METHOD 5 5:27 PM EDT [facility] Enteroaggregative E coli EAEC Detection by PCR Detected(A ) Not Detected LAB MICROBIOLOGY METHOD 5 5:27 PM EDT [facility] Enteropathogenic E coli EPEC Detection Not Detected Not Detected LAB MICROBIOLOGY METHOD 5 5:27 PM EDT [facility] Enterotoxigenic E coli ETEC LTST Detection Detected(A ) Not Detected LAB MICROBIOLOGY METHOD 5 5:27 PM EDT [facility] Shiga-like toxin producing E coli STEC STX1 STX2 Det Not Detected Not Detected LAB MICROBIOLOGY METHOD 5 5:27 PM EDT [facility] Shigella Enteroinvasive E coli EIEC Detection Not Detected Not Detected LAB MICROBIOLOGY METHOD 5 5:27 PM EDT [facility] Cryptosporidium Detection by PCR Not Detected Not Detected LAB MICROBIOLOGY METHOD 5 5:27 PM EDT [facility] Cyclospora cayetanensis Detection by PCR Not Detected Not Detected LAB MICROBIOLOGY METHOD 5 5:27 PM EDT [facility] Entamoeba histolytica Detection by PCR Not Detected Not Detected LAB MICROBIOLOGY METHOD 5 5:27 PM EDT [facility] Giardia lamblia Detection by PCR Not Detected Not Detected LAB MICROBIOLOGY METHOD 5 5:27 PM EDT [facility] Adenovirus F 40 41 Detection by PCR Not Detected Not Detected [facility] Astrovirus Detection by PCR Not Detected Not Detected [facility] Norovirus GI GII Detection by PCR Not Detected LAB MICROBIOLOGY METHOD 5 5:27 PM EDT [facility] Sapovirus Detection by PCR Not Detected Not Detected LAB MICROBIOLOGY METHOD 5 5:27 PM [facility] Rotavirus A Detection by PCR Not Detected Not Detected LAB MICROBIOLOGY METHOD 5 5:27 PM [facility] Stool Rectum structure / Unknown Non-blood Collection / Unknown 10/12/2024 10:34 AM EDT 10/12/2024 10:44 AM EDT [facility] - 10/12/2024 5:27 PM EDT PCR testing is much more sensitive than traditional techniques and allows for the detection of low numbers of stool pathogens. The clinical correlation of PCR results with the need for treatment and clinical outcomes has not been established. Therefore the results of PCR testing for stool pathogens must be taken into clinical context when making treatment decisions. This is a diagnostic test only, repeat testing for cure is not advised. You may consider infectious disease consult for additional guidance. Testing Performed by [facility] Rosalind Dow MD LAB MICROBIOLOGY - GENERAL ORD ERABLES Final Result [facility] [address] [place] [address], [place] [phone] * (ABNORMAL) Culture stool (10/12/2024 10:34 AM EDT) Culture, Stool Salmonella species(A) 10/14/2024 8:21 AM EDT [facility] Comment: The organism value for this result has been updated. These results have been appended to the previously preliminary verified report. Result component has been updated to reportable to [facility]. Stool Rectum structure / Unknown Non-blood Collection / Unknown 10/12/2024 10:34 AM EDT 10/12/2024 10:44 AM EDT Narrative Organism Antibiotic Method Susceptibility Salmonella species Ampicillin DISK DIFFUSION Susceptible Salmonella species Ciprofloxacin DISK DIFFUSION Intermediate Salmonella species Trimethoprim/Sulfamethoxazole DISK DIFFUSION Susceptible Rosalind Dow MD LAB MICROBIOLOGY - GENERAL ORD ERABLES Final Result [facility] [address] [place] [address], [place] [phone] * XR Chest 1 View (10/12/2024 9:06 AM EDT) Anatomical Region Laterality Modality Body Radiographic Anne ging 10/12/2024 9:14 AM EDT Impressions 10/12/2024 9:14 AM EDT FINDINGS/IMPRESSION: Lungs are clear. No pleural effusion or pneumothorax. Cardiac silhouette and bones are normal. -------- FINAL REPORT -------- Dictated By: CEDRIC CHAUDHRY Dictated Date: 10/12/2024 09:14 ET Assigned Physician: CEDRIC CHAUDHRY Reviewed and Electronically Signed By: CEDRIC CHAUDHRY Signed Date: 10/12/2024 09:14 ET Workstation ID: [id number] Transcribed By: Self Edit Transcribed Date: 10/12/2024 09:14 ET Narrative 10/12/2024 9:14 AM EDT XR CHEST 1 VIEW INDICATION: Edema TECHNIQUE: XR CHEST 1 VIEW COMPARISON: No priors available. Procedure Note Cedric Chaudhry MD - 10/12/2024 XR CHEST 1 VIEW INDICATION: Edema TECHNIQUE: XR CHEST 1 VIEW COMPARISON: No priors available. IMPRESSION: FINDINGS/IMPRESSION: Lungs are clear. No pleural effusion orpneumothorax. Cardiac silhouette and bones are normal. -------- FINAL REPORT -------- Dictated By: CEDRIC CHAUDHRY Dictated Date: 10/12/2024 09:14 ET Assigned Physician: CEDRIC CHAUDHRY Reviewed and Electronically Signed By: CEDRIC CHAUDHRY Signed Date: 10/12/2024 09:14 ET Workstation ID: [id number] Transcribed By: Self Edit Transcribed Date: 10/12/2024 09:14 ET Rosalind Dow MD IMG XR PROCEDURES Final Result * (ABNORMAL) Urinalysis with reflex microscopic and culture (10/12/2024 8:14 AM EDT) Specific [place] Urine 1.014 1.003 - 1.030 LAB URINALYSIS - AUTOMATED METHOD 10/12/2024 9:39 AM [facility] pH, Urine 5.5 5.0 - 8.0 pH LAB URINALYSIS - AUTOMATED METHOD 10/12/2024 9:39 AM [facility] Leukocytes, Urine Trace(A) Negative LAB URINALYSIS - AUTOMATED METHOD 10/12/2024 9:39 AM [facility] Nitrite, Urine Negative Negative LAB URINALYSIS - AUTOMATED METHOD 10/12/2024 9:39 AM [facility] Protein, Urine 100(A) <=Trace mg/dL LAB URINALYSIS - AUTOMATED METHOD 10/12/2024 9:39 AM [facility] Glucose, Urine Negative Negative mg/dL LAB URINALYSIS - AUTOMATED METHOD 10/12/2024 9:39 AM [facility] Ketones, Urine Trace(A) Negative mg/dL LAB URINALYSIS - AUTOMATED METHOD 10/12/2024 9:39 AM [facility] Urobilinogen , Urine 0.2 0.2 - 1.0 mg/dL LAB URINALYSIS - AUTOMATED METHOD 10/12/2024 9:39 AM [facility] Bilirubin, Urine Negative Negative LAB URINALYSIS - AUTOMATED METHOD 10/12/2024 9:39 AM [facility] Blood, Urine Moderate(A) Negative LAB URINALYSIS - AUTOMATED METHOD 10/12/2024 9:39 AM [facility] RBC, Urine 6.9(H) 0 - 4 /HPF LAB URINALYSIS - AUTOMATED METHOD 10/12/2024 9:39 AM [facility] WBC, Urine 12.8(H) 0 - 4 /HPF LAB URINALYSIS - AUTOMATED METHOD 10/12/2024 9:39 AM [facility] Squamous Epithelial, Urine 66(H) 0 - 60 /LPF LAB URINALYSIS - AUTOMATED METHOD 10/12/2024 9:39 AM [facility] Bacteria, Urine Negative Negative /HPF LAB URINALYSIS - AUTOMATED METHOD 10/12/2024 9:39 AM [facility] Hyaline Casts, Urine 4.0(H) 0 - 3 /LPF LAB URINALYSIS - AUTOMATED METHOD 10/12/2024 9:39 AM [facility] Urine Urine specimen obtained by clean catch procedure / Unknown Non-blood Collection / Unknown 10/12/2024 8:14 AM EDT 10/12/2024 8:44 AM EDT us Lory Lopez MD LAB URINE ORDERABLES Final Res ult [facility] [address] [place] [address], [place] [phone] * East urine culture tube (10/12/2024 8:14 AM EDT) Pathologist [facility] Extra Tube Hold for add-ons. 10/12/2024 10:01 AM EDT [facility] Comment:Auto resulted. Urine Urine specimen obtained by clean catch procedure / Unknown Non-blood Collection / Unknown 10/12/2024 8:14 AM EDT 10/12/2024 8:44 AM EDT us Lory Lopez MD LAB URINE ORDERABLES Final Res ult Performing Organization Address City/[facility]/ZIP Co de Phone Number [facility] [address] [place] [address], [place] [phone] * (ABNORMAL) Culture urine (10/12/2024 8:14 AM EDT) Pathologist [facility] Culture, Urine 50,000-100,000 CFU/mL Salmonella group(A) JHONY 10/15/2024 8:14 AM EDT [facility] Comment: This is an edited result. Previous organism was Gram negative bacilli on 10/13/2024 at 0824 EDT. Result component has been updated to reportable to [facility]. Urine Urine specimen obtained by clean catch procedure / Unknown Non-blood Collection / Unknown 10/12/2024 8:14 AM EDT 10/12/2024 9:38 AM EDT Narrative Organism Antibiotic Method Susceptibility Salmonella group Ampicillin DISK DIFFUSION Susceptible Salmonella group Ceftriaxone DISK DIFFUSION Susceptible Salmonella group Ciprofloxacin DISK DIFFUSION Intermediate Salmonella group Trimethoprim/Sulfamethoxazole DISK DI FFUSION Susceptible us Lory Lopez MD LAB MICROBIOLOGY - GENERAL ORD ERABLES Final Result [facility] [address] [place] [address], [place] [phone] * (ABNORMAL) Comprehensive metabolic panel (10/12/2024 6:20 AM EDT) Sodium 135 133 - 145 mmol/L LAB CHEMISTRY METHOD 10/12/2024 7:22 AM [facility] Potassium 2.9(LL) 3.5 - 5.5 mmol/L LAB CHEMISTRY METHOD 10/12/2024 7:22 AM [facility] Chloride 102 96 - 110 mmol/L LAB CHEMISTRY METHOD 10/12/2024 7:22 AM [facility] CO2 21 21 - 32 mmol/L LAB CHEMISTRY METHOD 10/12/2024 7:22 AM [facility] Anion Gap 12(H) 3 - 11 LAB CHEMISTRY METHOD 10/12/2024 7:22 AM [facility] Glucose 111(H) 70 - 100 mg/dL LAB CHEMISTRY METHOD 10/12/2024 7:22 AM [facility] BUN 77(H) 5 - 25 mg/dL LAB CHEMISTRY METHOD 10/12/2024 7:22 AM [facility] Creatinine 9.30(H) 0.50 - 1.10 mg/dL LAB CHEMISTRY METHOD 10/12/2024 7:22 AM [facility] eGFR 5(L) >=60 mL/min/1. 73m2 LAB CHEMISTRY METHOD 10/12/2024 7:22 AM [facility] Comment:Calculation based on the Chronic Kidney Disease Epidemiology Collaboration (CKD-EPI) equation refit without adjustment for race. BUN/Creatinine Ratio 8.3 LAB CHEMISTRY METHOD 10/12/2024 7:22 AM [facility] Calcium 8.3(L) 8.5 - 10.5 mg/dL LAB CHEMISTRY METHOD 10/12/2024 7:22 AM [facility] AST (SGOT) 25 10 - 42 unit/L LAB CHEMISTRY METHOD 10/12/2024 7:22 AM [facility] ALT (SGPT) 29 10 - 60 unit/L LAB CHEMISTRY METHOD 10/12/2024 7:22 AM EDT [facility] Alkaline Phosphatase 52 42 - 121 unit/L LAB CHEMISTRY METHOD 10/12/2024 7:22 AM T [facility] Total Protein 6.8 6.0 - 8.0 g/dL LAB CHEMISTRY METHOD 10/12/2024 7:22 AM EDT [facility] Albumin 3.4 3.2 - 5.0 g/dL LAB CHEMISTRY METHOD 10/12/2024 7:22 AM EDT [facility] Total Bilirubin 0.8 0.0 - 1.4 mg/dL LAB CHEMISTRY METHOD 10/12/2024 7:22 AM [facility] Blood Venous blood specimen / Unknown Venipuncture / Unknown 10/12/2024 6:20 AM EDT 10/12/2024 6:34 AM EDT us Lory Lopez MD LAB BLOOD ORDERABLES Final Res ult [facility] [address] [place] [address], * [place] CRITICAL CARE 30-74 MINUTES (10/12/2024 4:46 AM EDT) Narrative Lory Lopez MD - 10/12/2024 4:46 AM EDT Lory Lopez MD 10/12/2024 9:32 AM Critical Care Performed by: Lory Lopez MD Authorized by: Lory Lopez MD Critical care provider statement: Critical care time (minutes): 36 Total face to face critical care time (minutes): 36 Critical care time was exclusive of: Separately billable procedures and treating other patients Critical care was necessary to treat or prevent imminent or life-threatening deterioration of the following conditions: Renal failure Critical care was time spent personally by me on the following activities: Development of treatment plan with patient or surrogate, discussions with consultants, evaluation of patient's response to treatment, ordering and review of laboratory studies, ordering and review of radiographic studies, re-evaluation of patient's condition, ordering and performing treatments and interventions, examination of patient, obtaining history from patient or surrogate and pulse oximetry Face to face critical care was time spent personally by me on the following activities: Development of treatment plan with patient or surrogate, evaluation of patient's response to treatment, examination of patient, obtaining history from patient or surrogate, pulse oximetry and re-evaluation of patient's condition I assumed direction of critical care for this patient from another provider in my specialty: no Care discussed with: admitting provider us Lory Lopez MD IN CLINIC/BEDSIDE ORDERABLES F inal Result from Last 3 Months Additional Health Concerns Infection Onset Date Last Indicated Salmonella 10/12/2024 10/12/2024 Enterotoxigenic E. coli (ETEC) 10/12/2024 0 10/12/2024 Enteroaggregative E. coli (EAEC) 10/12/2024 10/12/2024 Insurance [facility] Advance Directives * Full Code - Default (Latest Code Status on File) Date Activated Date Inactivated Comments 10/12/2024 8:25 AM 10/16/2024 1:28 PM This is orde r is used when code status has not been discussed with the patient, or code status is otherwise unknown/unconfirmed To update the patient's code status, place a code status order. Do not modify or discontinue any currently active code status orders. Care Teams Bias Machine Operator Helper Relationship Specialty Start Date End Date Physician, Pcp Unknown PCP - General 10/12/24
== END 2024-12-22 15:46 | disposition home or self-care (01) ==
LOC: HO.HMCHD 14:28
PROVIDERS: PCP Internal Medicine; Visit Provider Internal Medicine
DX: N17.9 Acute kidney failure, unspecified (principal); R06.02 Shortness of breath; I10 Essential (primary) hypertension; R73.03 Prediabetes

== ENCOUNTER 2025-01-03 15:34 | Outpatient (AMB) | payer OTHER, SELFPAY ==
--- NOTE | 2025-01-03 15:37 | MHC.PC.OV ---
Vital Signs 01/03/25 15:38 Height 5 ft 3 in Weight 177 lb 8 oz BMI 31.4 BP 144/86 H Blood Pressure Location Lt brachial Position Sitting Respiration 16 Pulse 78 Pulse Source Pulse Oximeter Temp 96.6 F L Temp Source Temporal Artery Scan Pulse Oximetry (%) 98 Oxygen Delivery Method Room Air Intake Visit Reasons: BP check Seam Sewer Required: No Accompanied by: Self / Same As Patient Allergies acetaminophen (From Percocet) Allergy (Mild, Verified 01/03/25 15:37) Hives codeine Allergy (Mild, Verified 01/03/25 15:37) Hives morphine Allergy (Mild, Verified 01/03/25 15:37) Hives oxycodone (From Percocet) Allergy (Mild, Verified 01/03/25 15:37) Hives Penicillins Allergy (Mild, Verified 01/03/25 15:37) Hives tramadol Allergy (Mild, Verified 01/03/25 15:37) Hives Medication List - Last Reconciled 01/03/25 by Domenica Espinal MD amlodipine 5 mg PO DAILY carvedilol 6.25 mg PO BID 30 days cholecalciferol (vitamin D3) (Vitamin D3) 25 mcg PO DAILY diclofenac sodium 1% 2 grams topical QID PRN epinephrine IM fluticasone propionate 50 mcg/actuation 2 sprays intranasal DAILY Lactobacillus acidoph-L.bulgar 100 million cell (Floranex) 1 packet PO DAILY omeprazole 40 mg PO BID spironolactone 50 mg PO DAILY Tobacco use date assessed: 12/22/24 Dental Screening Dental Screen Date: 12/22/24 HPI HPI Comments History of Present Illness Details The patient is a 54 year old female presenting for a follow-up on her blood pressure management. Hypertension: The patient has been monitoring her blood pressure at home, with readings showing elevated diastolic pressures including 134/95 mmHg, 138/93 mmHg, 148/92 mmHg, 136/92 mmHg, 133/89 mmHg, 133/91 mmHg, 130/89 mmHg, 136/88 mmHg, 137/89 mmHg, 136/87 mmHg, 134/85 mmHg, 140/89 mmHg, and 141/90 mmHg. While her systolic blood pressure has been trending down from previous readings in the 150s, her diastolic pressure remains elevated. The patient's pulse rate is typically in the 60s to 70s. 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 Benign neutropenia: Recent lab results indicated a white blood cell count of 4.3. This was described as neutropenia, which could potentially be benign neutropenia. History of Acute Kidney Injury: The patient has a history of being hospitalized and almost requiring dialysis due to dehydration, which caused electrolyte imbalances. She follows up with a engineering recruiter and her next appointment is in April. 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 1. Little interest or pleasure in doing things: not at all 2. Feeling down, depressed, or hopeless: not at all 3. Trouble falling or staying asleep, or sleeping too much: not at all 4. Feeling tired or having little energy: several days 5. Poor appetite or overeating: not at all 6. Feeling bad about yourself - or that you are a failure or have let yourself or your family down: not at all 7. Trouble concentrating on things, such as reading the newspaper or watching television: not at all 8. Moving or speaking so slowly that other people could have noticed. Or the opposite - being so fidgety or restless that you have been moving around a lot more than usual: not at all 9. Thoughts that you would be better off or of hurting yourself in some way: not at all Total score: 1 Source: Developed by Drs. Zachariah Shultz, Candi Brett Soares and colleagues, with an educational adina from [employer]. AUDIT C Alcohol Use Questionnaire (AUDIT-C) 2. How many drinks containing alcohol do you have on a typical day when you are drinking?: 1 or 2 3. How often do you have six or more drinks on one occasion?: Never Total Score: 0 Review of Systems Narrative Review of Systems - Constitutional: Reports feeling tired and drained. - Neurological: Reports occasional headaches, which she associates with high blood pressure. Physical exam (Primary Care) Vital Signs: Last Vital Signs Temp 96.6 F L 01/03/25 15:38 Pulse 78 01/03/25 15:38 Resp 16 01/03/25 15:38 BP 144/86 H 01/03/25 15:38 Pulse Ox 98 01/03/25 15:38 Oxygen Delivery Method Room Air 01/03/25 15:38 BMI result Body Mass Index 31.4 Tobacco/Smoking Status: Tobacco use Status Tobacco use date assessed 12/22/24 01/03/25 15:42 Patient Tobacco Use Status Never used Tobacco 01/03/25 15:42 e-Cigarette/Vaping Use Never Used 01/03/25 15:42 PHQ-9: PHQ-9 Score PHQ-9: Total score 1 01/03/25 16:01 Narrative Physical Exam - Vitals: Blood pressure is 128/88 mmHg - Gen: NAD - Cardiovascular: Normal heart sounds were auscultated. Soft murmur - Respiratory: Lungs are clear to auscultation bilaterally. Coding Level of Care Code Est Pt Level 4 (37713) Complex EM visit Add On G2211 Diagnoses Primary hypertension I10 Neutropenia, unspecified type D70.9 Leukopenia type: neutropenia Neutropenia type: unspecified Assessment & Plan Assessment & Plan (1) Primary hypertension: Code(s): I10 - Essential (primary) hypertension Category: Medical (2) Leukopenia: Code(s): D72.819 - Decreased white blood cell count, unspecified Category: Medical Qualifiers: Leukopenia type: neutropenia Neutropenia type: unspecified Qualified Code(s): D70.9 - Neutropenia, unspecified Plan Assessment and Plan 1. Hypertension - The patient's blood pressure remains elevated, particularly the diastolic pressure, despite trending downwards. - The goal is a diastolic reading of 80 mmHg or below. - The plan is to increase her medication. - She will start taking two tablets of her current carvedilol prescription in the morning and two in the evening, making a total dose of 12.5 mg twice daily. - She will monitor her blood pressure at home for one week and report back via the patient portal. - If this dose is well-tolerated, a new prescription for 12.5 mg tablets will be issued. 2. Leukopenia - The patient has a recent lab result showing a mildly low white blood cell count of 4.3, which may represent benign neutropenia. - This will be monitored, and lab work will be repeated. - A referral to hematology will be considered if the count remains low or decreases further. 3. Health Maintenance - The office will follow up with Cardiology regarding the scheduling of her pending echocardiogram. - The patient has an upcoming gynecology appointment on January 18 and a nephrology follow-up in April. - A follow-up visit in this office is scheduled for February. Plan - The carvedilol dose will be increased to two tablets in the morning and two in the evening, totaling 12.5 mg twice daily. - The patient is instructed to monitor her blood pressure and pulse at home, twice a day for one week, and send the readings via the patient portal. - A new prescription for carvedilol 12.5 mg twice daily will be issued if the increased dose is tolerated. - Repeat blood work will be ordered to recheck the patient's white blood cell count at next office visit - The office will contact cardiology to follow up on the scheduling of the patient's echocardiogram. - The patient should continue with her scheduled nephrology appointment in April. Discussion Notes I reviewed the patient's home blood pressure logs, noting that while her blood pressure is trending down, her diastolic pressure remains elevated above our goal of 80 mmHg or less. We discussed increasing her carvedilol dose to 12.5 mg twice daily by having her take two of her current tablets in the morning and two in the evening. I instructed her to monitor her blood pressure for a week and send me the readings via the patient portal, after which I may prescribe a single 12.5 mg tablet to be taken twice a day. Patient Instructions - Increase your carvedilol blood pressure medication by taking two tablets 6.25mg in the morning and two tablets in the evening. - If the morning dose makes you tired, you can take one tablet in the morning and two near bedtime. - Check your blood pressure at home in the morning and evening for one week. - Send your blood pressure and pulse readings to me through the patient portal next week. - Continue to drink plenty of water. Medications: New carvedilol must administer with a meal/food 12.5 mg PO BID Discontinued carvedilol must administer with a meal/food Discontinued Reason: Doctor's Order 6.25 mg PO BID 30 days 60 tabs 0RF
[2025-01-03 15:38] VITALS: BP 144/86; PULSE 78; RESP 16; TEMP 35.9; O2SAT 98; BMI 31.4
--- OUTSIDE RECORDS SUMMARY | 2025-01-04 06:06 | XMS_ITS | Clinical Summary ---
Author Organization [facility] Address [address] [place] [phone] Phone Care Team Providers Care Brazer Helper Induction Name Role Phone Domenica Espinal MD Primary Care Provider [phone]- [phone] Allergies Active Allergy Reactions Criticality Noted Date Comments Codeine Hives 10/12/2024 Hydromorphone Hives,Itching,Nausea 10/12/2024 Morphine Hives 10/12/2024 Onion Hives,Itching,Swelli ng High 10/12/2024 Patient allergic to red onion Other 10/28/2024 Other Reaction(s): tomatoes, red onions, pears, walnuts Oxycodone Hives 10/12/2024 Oxycodone-Acetaminophen Hives,Itching Pear Hives,Itching,Swelli ng High 10/12/2024 Penicillins Hives,Itching 10/12/2024 Tomato Hives,Itching,Swelli ng High 10/12/2024 Tramadol Hives,Itching 10/12/2024 [place] Hives,Itching,Swelli ng High 10/12/2024 Medications Tirzepatide-Weig ht [...] DAYS 5 12/10/19 25 Discontinu ed([facility]) Active Problems Problem Noted Date Diagnosed [...] Office Visit [facility] [address] [phone] Trell Palacios MD Other acute kidney failure (HCC) (Primary Dx); Hypertension 10/28/2024 9:00 AM EDT Office Visit [facility] [address] [facility] [address] [place] [address] Trell Palacios MD Other acute kidney failure [...] Visit [facility] [address] [phone] Trell Palacios MD [address] [phone] Health Maintenance Due Date Last Done Comments [...] Activity 0.665 0.167 - 5.380 ng/mL/hr [facility] Blood Venous blood / Unknown 10/29/2024 8:44 AM EDT 10/29/2024 Narrative [facility] - 11/03/2024 1:05 PM EDT Test(s) [id number]-Expph Activity, Plasma was developed and its performance characteristics determined by [employer]. It has not been cleared or approved by the Food and Drug Administration. Trell Palacios MD LAB BLOOD ORDERABLES Final Resul t [facility] [place] [address] * (ABNORMAL) urine albumin / creatinine ratio (10/29/2024 8:44 AM EDT) Creatinine, Ur 95.8 Not Estab. mg/dL [facility] Albumin, Urine 32.5 Not Estab. ug/mL [facility] Albumin/Creatin ine Ratio 34(H) 0 - 29 mg/g creat [facility] Comment: Normal: 0 - 29 Moderately increased: 30 - 300 Severely increased: >300 Urine Urine specimen obtained by clean catch procedure / Unknown 10/29/2024 8:44 AM EDT 10/29/2024 Trell Palacios MD LAB URINE ORDERABLES Final Resul t [facility] [address] [place] [address] * Aldosterone (10/29/2024 8:44 AM EDT) Pathologist [facility] Aldosterone 20.2 0.0 - 30.0 ng/dL [facility] Blood Venous blood / Unknown 10/29/2024 8:44 AM EDT 10/29/2024 Narrative [facility] - 11/03/2024 1:05 PM EDT Test(s) [id number] was developed and its performance characteristics determined by [employer]. It has not been cleared or approved by the Food and Drug Administration. Trell Palacios MD LAB BLOOD ORDERABLES Final Resul t Performing Organization Address City/[facility]/ZIP Co de Phone Number [facility] [address] [place] [phone] * (ABNORMAL) Renal funtion panel (10/29/2024 8:44 AM EDT) Pathologist [facility] Glucose 96 70 - 99 mg/dL [facility] BUN 14 6 - 24 mg/dL [facility] Creatinine 1.36(H) 0.57 - 1.00 mg/dL [facility] eGFR CKD-EPI CR 2020 46(L) >59 mL/min/1.7 3 [facility] BUN/Creatinine Ratio 10 9 - 23 [facility] Sodium 137 134 - 144 mmol/L [facility] Potassium 3.9 3.5 - 5.2 mmol/L [facility] Chloride 101 96 - 106 mmol/L [facility] Bicarbonate (CO2) 20 20 - 29 mmol/L [facility] Calcium 9.2 8.7 - 10.2 mg/dL [facility] Albumin 4.3 3.8 - 4.9 g/dL [facility] Phosphorus 3.8 3.0 - 4.3 mg/dL [facility] Blood Venous blood / Unknown 10/29/2024 8:44 AM EDT 10/29/2024 us Trell Palacios MD LAB BLOOD ORDERABLES Final Resul t [facility] [address] [place] [address] from Last 3 Months Insurance [facility] Care Teams Brazer Helper Induction Relationship Specialty Start Date End Date Domenica Espinal MD [address] [place], [place] PCP - General Internal Medicine 10/19/24
--- OUTSIDE RECORDS SUMMARY | 2025-01-04 06:06 | XMS_ITS | Clinical Summary ---
Author Organization [facility] Address [address] [place] [address] Phone Care Team Providers Care Rn Burn Name Role Phone Physician, Pcp Unknown Primary Care Provider Vikki vailable Allergies Active Allergy Reactions Criticality Noted Date Comments Codeine Hives 10/12/2024 Hydromorphone Hives 10/12/2024 Morphine Hives 10/12/2024 Onion Hives,Itching,Angioedema High 10/12/2024 Patient allergic to red onion Oxycodone Hives 10/12/2024 Pear Hives,Itching,Angioedema High 10/12/2024 Penicillins Hives 10/12/2024 Tomato Hives,Itching,Angioedema High 10/12/2024 Tramadol Hives 10/12/2024 Freedom Hives,Itching,Angioedema High 10/12/2024 Medications amLODIPine (NORVASC) 5 [...] failure, unspeci fied acute renal failure type ([facility] V24) 10/12/2024 Encounters Date Type Department Care Team Description 10/12/2024 4:53 AM EDT - 10/16/2024 11:18 AM EDT Hospital Encounter [facility] [address] [place] [address] Lory Lopez MD Bukalo, Nermina, MD Mohani, Priya, MD Acute renal failure, unspecified acute renal failure type ([facility] V24) (Primary Dx); Hypokalemia due to excessive [...] care for your loved ones. For example, childcare director or elderly care for an older adult? [...] AND DIFFERENTIAL STAT 10/12/2024 6:20 AM EDT [place] [facility] 30-74 MINUTES Routine 10/12/2024 4:46 AM EDT from Last 3 Months Results * (ABNORMAL) Magnesium (10/16/2024 6:00 AM EDT) Only the most recent of4 resultswithin the time period is included. Pathologist [facility] Magnesium 1.7(L) 1.9 - 2.6 mg/dL LAB CHEMISTRY METHOD 10/16/2024 7:07 AM EDT [facility] Blood Venous blood specimen / Unknown Venipuncture / Unknown 10/16/2024 6:00 AM EDT 10/16/2024 6:19 AM EDT us Meaghan Chi MD LAB BLOOD ORDERABLES Final Resul t [facility] [address] [place] [address], [place] [phone] * (ABNORMAL) Basic metabolic panel (10/16/2024 6:00 AM EDT) Only the most recent of6 resultswithin the time period is included. Sodium 139 133 - 145 mmol/L LAB CHEMISTRY METHOD 10/16/2024 7:07 AM EDT [facility] Potassium 3.7 3.5 - 5.5 mmol/L LAB CHEMISTRY METHOD 10/16/2024 7:07 AM EDT [facility] Chloride 109 96 - 110 mmol/L LAB CHEMISTRY METHOD 10/16/2024 7:07 AM [facility] CO2 27 21 - 32 mmol/L LAB CHEMISTRY METHOD 10/16/2024 7:07 AM [facility] Anion Gap 3 3 - 11 LAB CHEMISTRY METHOD 10/16/2024 7:07 AM [facility] Glucose 93 70 - 100 mg/dL LAB CHEMISTRY METHOD 10/16/2024 7:07 AM [facility] BUN 11 5 - 25 mg/dL LAB CHEMISTRY METHOD 10/16/2024 7:07 AM [facility] Creatinine 1.93(H) 0.50 - 1.10 mg/dL LAB CHEMISTRY METHOD 10/16/2024 7:07 AM [facility] eGFR 30(L) >=60 mL/min/1. 73m2 LAB CHEMISTRY METHOD 10/16/2024 7:07 AM [facility] Comment:Calculation based on the Chronic Kidney Disease Epidemiology Collaboration (CKD-EPI) equation refit without adjustment for race. BUN/Creatinine Ratio 5.7 LAB CHEMISTRY METHOD 10/16/2024 7:07 AM [facility] Calcium 8.1(L) 8.5 - 10.5 mg/dL LAB CHEMISTRY METHOD 10/16/2024 7:07 AM [facility] Blood Venous blood specimen / Unknown Venipuncture / Unknown 10/16/2024 6:00 AM EDT 10/16/2024 6:19 AM EDT us Meaghan Chi MD LAB BLOOD ORDERABLES Final Resul t [facility] [address] [place] [address], * Lavender tube (10/16/2024 5:56 AM EDT) Only the most recent of3 resultswithin the time period is included. Extra Tube Hold for add-ons. 10/16/2024 8:01 AM EDT [facility] Comment:Auto resulted. Blood Venous blood specimen / Unknown Venipuncture / Unknown 10/16/2024 5:56 AM EDT 10/16/2024 6:19 AM EDT us Meaghan Chi MD LAB BLOOD ORDERABLES Final Resul t Performing Organization Address City/[facility] Co de Phone Number [facility] [address] [place] [address], [place] [phone] * (ABNORMAL) RBC morphology review (10/14/2024 5:44 AM EDT) [facility] Rbc Morphology Consistent with indices Consistent with indices, Normal for LAB HEMETOLOGY METHOD 10/14/2024 7:15 AM EDT [facility] Platelet Morphology - WAM See Note(A) Normal LAB HEMETOLOGY METHOD 10/14/2024 7:15 AM EDT [facility] Comment:PLT: Normal Blood Venous blood specimen / Unknown Venipuncture / Unknown 10/14/2024 5:44 AM EDT 10/14/2024 6:10 AM EDT us Meaghan Chi MD LAB BLOOD ORDERABLES Final Resul t Performing Organization Address [facility] Co de Phone Number [facility] [address] [place] [address], [place] [phone] * (ABNORMAL) CBC auto differential (10/14/2024 5:44 AM EDT) Only the most recent of2 resultswithin the time period is included. [facility] WBC 2.7(L) 4.8 - 10.8 K/mcL LAB HEMETOLOGY METHOD 10/14/2024 7:15 AM EDT [facility] RBC 4.00 3.80 - 4.80 M/mcL LAB HEMETOLOGY METHOD 10/14/2024 7:15 AM EDT [facility] Hemoglobin 11.6 11.5 - 16.0 g/dL LAB HEMETOLOGY METHOD 10/14/2024 7:15 AM [facility] Hematocrit 34.7(L) 35.0 - 47.0 % LAB HEMETOLOGY METHOD 10/14/2024 7:15 AM [facility] MCV 87.0 79.0 - 98.0 FL LAB HEMETOLOGY METHOD 10/14/2024 7:15 AM [facility] MCH 29.1 27.0 - 32.0 pcg LAB HEMETOLOGY METHOD 10/14/2024 7:15 AM [facility] MCHC 33.4 32.0 - 37.0 g/dL LAB HEMETOLOGY METHOD 10/14/2024 7:15 AM [facility] RDW 13.7 11.0 - 15.0 % LAB HEMETOLOGY METHOD 10/14/2024 7:15 AM [facility] Platelets 223 130 - 400 K/mcL LAB HEMETOLOGY METHOD 10/14/2024 7:15 AM [facility] MPV 10.2 7.0 - 11.0 FL LAB HEMETOLOGY METHOD 10/14/2024 7:15 AM [facility] NRBC 0.0 <1.0 % LAB HEMETOLOGY METHOD 10/14/2024 7:15 AM [facility] NRBC Absolute 0.00 <0.10 K/mcL LAB HEMETOLOGY METHOD 10/14/2024 7:15 AM [facility] Neutrophils Relative 40.0 % LAB HEMETOLOGY METHOD 10/14/2024 7:15 AM [facility] Comment:This is an appended report. These results have been appended to a previously preliminary verified report. Lymphocytes Relative 36.0 % LAB HEMETOLOGY METHOD 10/14/2024 7:15 AM [facility] Comment:This is an appended report. These results have been appended to a previously preliminary verified report. Monocytes Relative 19.5 % LAB HEMETOLOGY METHOD 10/14/2024 7:15 AM [facility] Comment:This is an appended report. These results have been appended to a previously preliminary verified report. Eosinophils Relative 3.0 % LAB HEMETOLOGY METHOD 10/14/2024 7:15 AM [facility] Comment:This is an appended report. These results have been appended to a previously preliminary verified report. Basophils Relative 0.4 % LAB HEMETOLOGY METHOD 10/14/2024 7:15 AM [facility] Comment:This is an appended report. These results have been appended to a previously preliminary verified report. Immature Granulocytes Relative 1.1 % LAB HEMETOLOGY METHOD 10/14/2024 7:15 AM [facility] Comment:This is an appended report. These results have been appended to a previously preliminary verified report. Neutrophils Absolute 1.07(L) 1.50 - 7.00 K/mcL LAB HEMETOLOGY METHOD 10/14/2024 7:15 AM [facility] Comment:This is an appended report. These results have been appended to a previously preliminary verified report. Lymphocytes Absolute 0.96(L) 1.00 - 5.00 K/mcL LAB HEMETOLOGY METHOD 10/14/2024 7:15 AM [facility] Comment:This is an appended report. These results have been appended to a previously preliminary verified report. Monocytes Absolute 0.52 0.20 - 1.00 K/mcL LAB HEMETOLOGY METHOD 10/14/2024 7:15 AM [facility] Comment:This is an appended report. These results have been appended to a previously preliminary verified report. Eosinophils Absolute 0.08 0.00 - 0.50 K/mcL LAB HEMETOLOGY METHOD 10/14/2024 7:15 AM EDT [facility] Comment:This is an appended report. These results have been appended to a previously preliminary verified report. Basophils Absolute 0.01 0.00 - 0.20 K/mcL LAB HEMETOLOGY METHOD 10/14/2024 7:15 AM EDT [facility] Comment:This is an appended report. These results have been appended to a previously preliminary verified report. Immature Granulocytes Absolute 0.03 0.00 - 0.03 K/[facility] LAB HEMETOLOGY METHOD 10/14/2024 7:15 AM EDT [facility] Comment:This is an appended report. These results have been appended to a previously preliminary verified report. Blood Venous blood specimen / Unknown Venipuncture / Unknown 10/14/2024 5:44 AM EDT 10/14/2024 6:10 AM EDT Meaghan Chi MD LAB BLOOD ORDERABLES Final Resul t [facility] [address] [place] [address], [place] [phone] * Anti-Jennifer 1 antibody, IgG (10/13/2024 8:53 AM EDT) JENNIFER-1 IgG Antibody <0.3 <7.0 U/mL 10/15/2024 11:29 AM EDT [facility] Comment: INTERPRETATION: Negative Test performed at [facility], [address], [place] [address] Karla Crump MD, PhD - Event Operations Manager Blood Venous blood specimen / Unknown Venipuncture / Unknown 10/13/2024 8:53 AM EDT 10/13/2024 9:06 AM EDT us Meaghan Cih MD LAB BLOOD ORDERABLES Final Resul t [facility] [address] [place] [address] * Tissue transglutaminase, IgA (10/13/2024 5:45 AM EDT) Pathologist [facility] Tissue Transglutaminase Ab, IgA Quant 1 <4 unit/mL LAB CHEMISTRY METHOD 10/20/2024 11:51 AM EDT [facility] Tissue Transglutaminase Ab, IgA Negative Negative LAB CHEMISTRY METHOD 10/20/2024 11:51 AM EDT [facility] Blood Venous blood specimen / Unknown Venipuncture / Unknown 10/13/2024 5:45 AM EDT 10/13/2024 6:12 AM EDT us Meaghan Chi MD LAB BLOOD ORDERABLES Final Resul t [facility] [address] [place] [address], * (ABNORMAL) Complete blood count (10/13/2024 5:45 AM EDT) [facility] WBC 2.5(L) 4.8 - 10.8 K/mcL LAB HEMETOLOGY METHOD 10/13/2024 6:58 AM EDT [facility] RBC 4.20 3.80 - 4.80 M/mcL LAB HEMETOLOGY METHOD 10/13/2024 6:58 AM EDT [facility] Hemoglobin 12.1 11.5 - 16.0 g/dL LAB HEMETOLOGY METHOD 10/13/2024 6:58 AM EDT [facility] Hematocrit 35.4 35.0 - 47.0 % LAB HEMETOLOGY METHOD 10/13/2024 6:58 AM EDT [facility] MCV 85.1 79.0 - 98.0 FL LAB HEMETOLOGY METHOD 10/13/2024 6:58 AM EDT [facility] MCH 29.1 27.0 - 32.0 pcg LAB HEMETOLOGY METHOD 10/13/2024 6:58 AM EDT [facility] MCHC 34.2 32.0 - 37.0 g/dL LAB HEMETOLOGY METHOD 10/13/2024 6:58 AM EDT [facility] RDW 13.3 11.0 - 15.0 % LAB HEMETOLOGY METHOD 10/13/2024 6:58 AM EDT [facility] Platelets 195 130 - 400 K/mcL LAB HEMETOLOGY METHOD 10/13/2024 6:58 AM EDT [facility] MPV 10.1 7.0 - 11.0 FL LAB HEMETOLOGY METHOD 10/13/2024 6:58 AM EDT [facility] NRBC 0.0 <1.0 % LAB HEMETOLOGY METHOD 10/13/2024 6:58 AM EDT [facility] NRBC Absolute 0.00 <0.10 K/mcL LAB HEMETOLOGY METHOD 10/13/2024 6:58 AM EDT [facility] Blood Venous blood specimen / Unknown Venipuncture / Unknown 10/13/2024 5:45 AM EDT 10/13/2024 6:12 AM EDT us Rosalind Dow MD LAB BLOOD ORDERABLES Final Res ult [facility] [address] [place] [address], * Immunoglobulin IgM (10/13/2024 5:45 AM EDT) IgM 44 23 - 259 mg/dL LAB CHEMISTRY METHOD 10/13/2024 8:54 AM EDT [facility] Blood Venous blood specimen / Unknown Venipuncture / Unknown 10/13/2024 5:45 AM EDT 10/13/2024 6:12 AM EDT us Meaghan Chi MD LAB BLOOD ORDERABLES Final Resul t [place]ENN[place]ER BAEZ [place] ([facility]) [facility] [address] [place] [address], [place] [phone] * [place] Retroperitoneal Complete (10/12/2024 11:43 PM [...] Signed Date: 10/16/2024 13:58 ET Workstation ID: [id number] Transcribed By: Self Edit Transcribed Date: 10/16/2024 [...] Signed Date: 10/16/2024 13:58 ET Workstation ID: [id number] Transcribed By: Self Edit Transcribed Date: 10/16/2024 13:55 ET us Elvin Mckeon MD IMG US PROCEDURES Fin al Result * ZANE IFA with titer and pattern (10/12/2024 12:33 PM EDT) [facility] ZANE Negative Negative 10/13/2024 2:03 PM EDT [facility] Comment:ZANE performed by ind irect immunofluorescence (IFA) using HEp-2 substrate. Blood Venous blood specimen / Unknown Venipuncture / Unknown 10/12/2024 12:33 PM EDT 10/12/2024 12:37 PM EDT Elvin Mckeon MD LAB BLOOD ORDERABLES Final Result Performing Organization Address City/[facility]/ZIP Co de Phone Number [facility] [address] [place] [address], [place] [phone] * Anti-neutrophilic cytoplasmic antibody (10/12/2024 12:33 PM EDT) [facility] Myeloperoxidase Ab Negative Negative LAB CHEMISTRY METHOD 10/13/2024 12:22 PM EDT [facility] Myeloperoxidase Ab, Quant 1 <=20 units LAB CHEMISTRY METHOD 10/13/2024 12:22 PM EDT [facility] Proteinase-3 Ab Negative Negative LAB CHEMISTRY METHOD 10/13/2024 12:22 PM EDT [facility] Proteinase-3 Ab Quant 7 <=20 units LAB CHEMISTRY METHOD 10/13/2024 12:22 PM EDT [facility] Blood Venous blood specimen / Unknown Venipuncture / Unknown 10/12/2024 12:33 PM EDT 10/12/2024 12:37 PM EDT Elvin Mckeon MD LAB BLOOD ORDERABLES Final Result Performing Organization Address City/[facility]/ZIP Co de Phone Number [facility] [address] [place] [address], [place] [phone] * C3 complement (10/12/2024 12:33 PM EDT) C3 Complement 164 88 - 201 mg/dL LAB CHEMISTRY METHOD 10/12/2024 10:58 PM EDT [facility] Blood Venous blood specimen / Unknown Venipuncture / Unknown 10/12/2024 12:33 PM EDT 10/12/2024 12:37 PM EDT us Elvin Mckeon MD LAB BLOOD ORDERABLES Final Result Performing Organization Address City/[facility]/ZIP Co de Phone Number [facility] [address] [place] [address], [place] [phone] * (ABNORMAL) C4 complement (10/12/2024 12:33 PM EDT) C4 Complement 50(H) 16 - 47 mg/dL LAB CHEMISTRY METHOD 10/12/2024 10:58 PM EDT [facility] Blood Venous blood specimen / Unknown Venipuncture / Unknown 10/12/2024 12:33 PM EDT 10/12/2024 12:37 PM EDT us Elvin Mckeon MD LAB BLOOD ORDERABLES Final Result Performing Organization Address City/[facility]/ZIP Co de Phone Number [facility] [address] [place] [address], [place] [phone] * (ABNORMAL) Haptoglobin (10/12/2024 12:33 PM EDT) Haptoglobin 304(H) 16 - 200 mg/dL LAB CHEMISTRY METHOD 10/12/2024 10:58 PM EDT [facility] Blood Venous blood specimen / Unknown Venipuncture / Unknown 10/12/2024 12:33 PM EDT 10/12/2024 12:37 PM EDT us Elvin Mckeon MD LAB BLOOD ORDERABLES Final Result [facility] [address] [place] [address], * (ABNORMAL) Gastrointestinal pathogens molecular study (10/12/2024 10:34 AM EDT) Campylobacter Detection by PCR Not Detected Not Detected LAB MICROBIOLOGY METHOD 5 5:27 PM EDT [facility] Plesiomonas shigelloides Detection by PCR Not Detected Not Detected LAB MICROBIOLOGY METHOD 5 5:27 PM EDT [facility] Salmonella Detection by PCR Detected(A A) Not Detected LAB MICROBIOLOGY METHOD 5 5:27 PM EDT [facility] Vibrio Detection by PCR Not Detected Not Detected LAB MICROBIOLOGY METHOD 5 5:27 PM EDT [facility] Vibrio cholerae Detection by PCR Not Detected Not Detected LAB MICROBIOLOGY METHOD 5 5:27 PM EDT [facility] Yersinia enterocolitica Detection by PCR Not Detected Not Detected LAB MICROBIOLOGY METHOD 5 5:27 PM EDT [facility] Enteroaggregative E coli EAEC Detection by PCR Detected(A ) Not Detected LAB MICROBIOLOGY METHOD 5 5:27 PM EDT [facility] Enteropathogenic E coli EPEC Detection Not Detected Not Detected LAB MICROBIOLOGY METHOD 5 5:27 PM EDT [facility] Enterotoxigenic E coli ETEC LTST Detection Detected(A ) Not Detected LAB MICROBIOLOGY METHOD 5 5:27 PM EDT [facility] Shiga-like toxin producing E coli STEC STX1 STX2 Det Not Detected Not Detected LAB MICROBIOLOGY METHOD 5 5:27 PM EDT [facility] Shigella Enteroinvasive E coli EIEC Detection Not Detected Not Detected LAB MICROBIOLOGY METHOD 5 5:27 PM EDT [facility] Cryptosporidium Detection by PCR Not Detected Not Detected LAB MICROBIOLOGY METHOD 5 5:27 PM EDT [facility] Cyclospora cayetanensis Detection by PCR Not Detected Not Detected LAB MICROBIOLOGY METHOD 5 5:27 PM EDT [facility] Entamoeba histolytica Detection by PCR Not Detected Not Detected LAB MICROBIOLOGY METHOD 5 5:27 PM EDT [facility] Giardia lamblia Detection by PCR Not Detected Not Detected LAB MICROBIOLOGY METHOD 5 5:27 PM EDT [facility] Adenovirus F 40 41 Detection by PCR Not Detected Not Detected [facility] Astrovirus Detection by PCR Not Detected Not Detected [facility] Norovirus GI GII Detection by PCR Not Detected LAB MICROBIOLOGY METHOD 5 5:27 PM EDT [facility] Sapovirus Detection by PCR Not Detected Not Detected LAB MICROBIOLOGY METHOD 5 5:27 PM [facility] Rotavirus A Detection by PCR Not Detected Not Detected LAB MICROBIOLOGY METHOD 5 5:27 PM [facility] Stool Rectum structure / Unknown Non-blood Collection / Unknown 10/12/2024 10:34 AM EDT 10/12/2024 10:44 AM EDT [facility] - 10/12/2024 5:27 [...] MICROBIOLOGY - GENERAL ORD ERABLES Final Result [facility] [address] [place] [address], [place] [phone] * (ABNORMAL) Culture stool (10/12/2024 10:34 AM EDT) Culture, Stool Salmonella species(A) 10/14/2024 8:21 AM EDT [facility] Comment: The organism value for this result has been updated. These results have been appended to the previously preliminary verified report. Result component has been updated to reportable to [facility]. Stool Rectum structure / Unknown Non-blood Collection / Unknown 10/12/2024 10:34 AM EDT 10/12/2024 10:44 AM EDT Narrative Organism Antibiotic Method Susceptibility Salmonella species Ampicillin DISK DIFFUSION Susceptible Salmonella species Ciprofloxacin DISK DIFFUSION Intermediate Salmonella species Trimethoprim/Sulfamethoxazole DISK DIFFUSION Susceptible Rosalind Dow MD LAB MICROBIOLOGY - GENERAL ORD ERABLES Final Result [facility] [address] [place] [address], [place] [phone] * XR Chest 1 View (10/12/2024 9:06 [...] Signed Date: 10/12/2024 09:14 ET Workstation ID: [id number] Transcribed By: Self Edit Transcribed Date: 10/12/2024 [...] Signed Date: 10/12/2024 09:14 ET Workstation ID: [id number] Transcribed By: Self Edit Transcribed Date: 10/12/2024 09:14 ET Rosalind Dow MD IMG XR PROCEDURES Final Result * (ABNORMAL) Urinalysis with reflex microscopic and culture (10/12/2024 8:14 AM EDT) Specific [place] Urine 1.014 1.003 - 1.030 LAB URINALYSIS - AUTOMATED METHOD 10/12/2024 9:39 AM [facility] pH, Urine 5.5 5.0 - 8.0 pH LAB URINALYSIS - AUTOMATED METHOD 10/12/2024 9:39 AM [facility] Leukocytes, Urine Trace(A) Negative LAB URINALYSIS - AUTOMATED METHOD 10/12/2024 9:39 AM [facility] Nitrite, Urine Negative Negative LAB URINALYSIS - AUTOMATED METHOD 10/12/2024 9:39 AM [facility] Protein, Urine 100(A) <=Trace mg/dL LAB URINALYSIS - AUTOMATED METHOD 10/12/2024 9:39 AM [facility] Glucose, Urine Negative Negative mg/dL LAB URINALYSIS - AUTOMATED METHOD 10/12/2024 9:39 AM [facility] Ketones, Urine Trace(A) Negative mg/dL LAB URINALYSIS - AUTOMATED METHOD 10/12/2024 9:39 AM [facility] Urobilinogen , Urine 0.2 0.2 - 1.0 mg/dL LAB URINALYSIS - AUTOMATED METHOD 10/12/2024 9:39 AM [facility] Bilirubin, Urine Negative Negative LAB URINALYSIS - AUTOMATED METHOD 10/12/2024 9:39 AM [facility] Blood, Urine Moderate(A) Negative LAB URINALYSIS - AUTOMATED METHOD 10/12/2024 9:39 AM [facility] RBC, Urine 6.9(H) 0 - 4 /HPF LAB URINALYSIS - AUTOMATED METHOD 10/12/2024 9:39 AM [facility] WBC, Urine 12.8(H) 0 - 4 /HPF LAB URINALYSIS - AUTOMATED METHOD 10/12/2024 9:39 AM [facility] Squamous Epithelial, Urine 66(H) 0 - 60 /LPF LAB URINALYSIS - AUTOMATED METHOD 10/12/2024 9:39 AM [facility] Bacteria, Urine Negative Negative /HPF LAB URINALYSIS - AUTOMATED METHOD 10/12/2024 9:39 AM [facility] Hyaline Casts, Urine 4.0(H) 0 - 3 /LPF LAB URINALYSIS - AUTOMATED METHOD 10/12/2024 9:39 AM [facility] Urine Urine specimen obtained by clean catch procedure / Unknown Non-blood Collection / Unknown 10/12/2024 8:14 AM EDT 10/12/2024 8:44 AM EDT us Lory Lopez MD LAB URINE ORDERABLES Final Res ult [facility] [address] [place] [address], [place] [phone] * East urine culture tube (10/12/2024 8:14 AM EDT) Pathologist [facility] Extra Tube Hold for add-ons. 10/12/2024 10:01 AM EDT [facility] Comment:Auto resulted. Urine Urine specimen obtained by clean catch procedure / Unknown Non-blood Collection / Unknown 10/12/2024 8:14 AM EDT 10/12/2024 8:44 AM EDT us Lory Lopez MD LAB URINE ORDERABLES Final Res ult Performing Organization Address City/[facility]/ZIP Co de Phone Number [facility] [address] [place] [address], [place] [phone] * (ABNORMAL) Culture urine (10/12/2024 8:14 AM EDT) Pathologist [facility] Culture, Urine 50,000-100,000 CFU/mL Salmonella group(A) JHONY 10/15/2024 8:14 AM EDT [facility] Comment: This is an edited result. Previous organism was Gram negative bacilli on 10/13/2024 at 0824 EDT. Result component has been updated to reportable to [facility]. Urine Urine specimen obtained by clean catch [...] MICROBIOLOGY - GENERAL ORD ERABLES Final Result [facility] [address] [place] [address], [place] [phone] * (ABNORMAL) Comprehensive metabolic panel (10/12/2024 6:20 AM EDT) Sodium 135 133 - 145 mmol/L LAB CHEMISTRY METHOD 10/12/2024 7:22 AM [facility] Potassium 2.9(LL) 3.5 - 5.5 mmol/L LAB CHEMISTRY METHOD 10/12/2024 7:22 AM [facility] Chloride 102 96 - 110 mmol/L LAB CHEMISTRY METHOD 10/12/2024 7:22 AM [facility] CO2 21 21 - 32 mmol/L LAB CHEMISTRY METHOD 10/12/2024 7:22 AM [facility] Anion Gap 12(H) 3 - 11 LAB CHEMISTRY METHOD 10/12/2024 7:22 AM [facility] Glucose 111(H) 70 - 100 mg/dL LAB CHEMISTRY METHOD 10/12/2024 7:22 AM [facility] BUN 77(H) 5 - 25 mg/dL LAB CHEMISTRY METHOD 10/12/2024 7:22 AM [facility] Creatinine 9.30(H) 0.50 - 1.10 mg/dL LAB CHEMISTRY METHOD 10/12/2024 7:22 AM [facility] eGFR 5(L) >=60 mL/min/1. 73m2 LAB CHEMISTRY METHOD 10/12/2024 7:22 AM [facility] Comment:Calculation based on the Chronic Kidney Disease Epidemiology Collaboration (CKD-EPI) equation refit without adjustment for race. BUN/Creatinine Ratio 8.3 LAB CHEMISTRY METHOD 10/12/2024 7:22 AM [facility] Calcium 8.3(L) 8.5 - 10.5 mg/dL LAB CHEMISTRY METHOD 10/12/2024 7:22 AM [facility] AST (SGOT) 25 10 - 42 unit/L LAB CHEMISTRY METHOD 10/12/2024 7:22 AM [facility] ALT (SGPT) 29 10 - 60 unit/L LAB CHEMISTRY METHOD 10/12/2024 7:22 AM EDT [facility] Alkaline Phosphatase 52 42 - 121 unit/L LAB CHEMISTRY METHOD 10/12/2024 7:22 AM T [facility] Total Protein 6.8 6.0 - 8.0 g/dL LAB CHEMISTRY METHOD 10/12/2024 7:22 AM EDT [facility] Albumin 3.4 3.2 - 5.0 g/dL LAB CHEMISTRY METHOD 10/12/2024 7:22 AM EDT [facility] Total Bilirubin 0.8 0.0 - 1.4 mg/dL LAB CHEMISTRY METHOD 10/12/2024 7:22 AM [facility] Blood Venous blood specimen / Unknown Venipuncture / Unknown 10/12/2024 6:20 AM EDT 10/12/2024 6:34 AM EDT us Lory Lopez MD LAB BLOOD ORDERABLES Final Res ult [facility] [address] [place] [address], * [place] [facility] 30-74 MINUTES (10/12/2024 4:46 AM [...] Enteroaggregative E. coli (EAEC) 10/12/2024 10/12/2024 Insurance [facility] Advance Directives * Full Code - Default [...] currently active code status orders. Care Teams Rn Burn Relationship Specialty Start Date End Date Physician, Pcp Unknown PCP - General 10/12/24
== END 2025-01-03 16:21 | disposition home or self-care (01) ==
LOC: HO.HMCHD 15:34
PROVIDERS: PCP Internal Medicine; Visit Provider Internal Medicine
DX: I10 Essential (primary) hypertension (principal); D70.9 Neutropenia, unspecified